=== PATIENT | female | born 1955 | race Caucasian/White ===

== ENCOUNTER 2018-08-10 00:24 | Outpatient (CLI) | payer OTHER, SELFPAY ==
--- NOTE | 2018-08-10 14:45 | DI.RAD_ITS ---
SYMPTOMS/DIAGNOSIS: OSTEOPENIA, M85.80 DEXA SCAN: Routine examination. The lateral spine shows no compression deformities. Evaluation of the left hip shows a total T score of -1.9 and a Z score of -0.7. This is consistent with osteopenia and an increased fracture risk. This compares with a total T score of -1.6 from 2009. Evaluation of the lumbar spine shows a total T score of -0.4 and a Z score of 1.3, which is within normal limits. The total T score is unchanged compared to 2009. There is no evidence of osteoporosis. IMPRESSION: Osteopenia in the left hip. No evidence of osteoporosis.
--- NOTE | 2018-08-10 15:11 | DI.MAMMO_ITS ---
SYMPTOM/DIAGNOSIS: SCREENING, PREVENTATIVE HEALTH CARE MAMMOGRAMS: Mammograms were interpreted according to the usual protocol including computer analysis with CAD system, tomosynthesis and C view imaging. Comparison is with the prior examinations. No suspicious masses or microcalcifications are seen. There is a new well- circumscribed density in the 9 o'clock position of the right breast. Spot compression views and a right breast ultrasound are requested for further evaluation. IMPRESSION: Additional views of the right breast as described above. Category 0, breast density category B. MQSA ASSESSMENT OF FINDINGS: Incomplete: Needs additional imaging evaluation. Category 0. Patient will receive a letter notifying them of these results. BI-RADS category B. There are scattered areas of fibroglandular density.
== END 2018-08-10 00:44 ==
PROVIDERS: PCP Family Medicine; Visit Provider Family Medicine
DX: M85.88 Other specified disorders of bone density and structure, other site (principal); Z00.00 Encounter for general adult medical examination without abnormal findings; Z12.31 Encounter for screening mammogram for malignant neoplasm of breast; R92.8 Other abnormal and inconclusive findings on diagnostic imaging of breast
CPT/HCPCS: 77063; 77067; 77080

== ENCOUNTER 2018-08-13 01:02 | Outpatient (CLI) | payer OTHER, SELFPAY ==
--- NOTE | 2018-08-13 14:18 | DI.COMBO_ITS ---
SYMPTOMS/DIAGNOSIS: F/U ABNORMAL MAMMO, NEW WELL-CIRCUMSCRIBED DENSITY ADDITIONAL VIEWS OF THE RIGHT BREAST AND RIGHT BREAST ULTRASOUND: Additional images are interpreted according to the usual protocol including tomosynthesis and 2D imaging. Spot compression views with tomography of the lateral and inferior right breast were performed. There is a persistent circumscribed nodule, which has the appearance of a lymph node. Breast density B. Right breast ultrasound shows a 5 mm hypoechoic nodule in the lower outer quadrant, consistent with a lymph node. No suspicious masses are seen. IMPRESSION: Category 2, negative mammogram and right breast ultrasound with benign findings of a 5 mm intramammary lymph node. Yearly screening mammography is recommended. MQSA ASSESSMENT OF FINDINGS: Negative with benign findings. Category 2. Patient will receive a letter notifying them of these results. BI-RADS category B. There are scattered areas of fibroglandular density.
== END 2018-08-13 01:22 ==
PROVIDERS: PCP Family Medicine; Visit Provider Family Medicine
DX: Z12.31 Encounter for screening mammogram for malignant neoplasm of breast (principal); R92.8 Other abnormal and inconclusive findings on diagnostic imaging of breast; N60.81 Other benign mammary dysplasias of right breast
CPT/HCPCS: 76642; 77063; 77067

== ENCOUNTER 2019-09-04 02:04 | Outpatient (CLI) | payer OTHER, SELFPAY ==
[2019-09-04 10:03] LABS: HCT 39.8 % (36.0-46.0); HGB 13.8 g/dL (12.0-15.5); Mean Corp. HGB Concentration 34.7 g/dL (32.0-36.0); Mean Corpuscular Hemoglobin 31.7 pg (27.0-33.0); Mean Corpuscular Volume 91.3 fL (80-95); Mean Platelet Volume 10.9 fL (8.0-11.0); Platelet Count 265 x1000/uL (130-400); RBC 4.36 m/cumm (4.00-5.20); RBC Distribution Width 12.8 % (11.7-14.6); White Blood Cell Count 4.94 k/cumm (4.4-10.8)
[2019-09-04 11:48] LABS: ALT 42 U/L (14-59); AST 20 U/L (15-37); Albumin 3.7 g/dL (3.4-5.0); Alkaline Phosphatase 85 U/L (46-116); Anion Gap 9.6 mmol/L (3-11); BUN 18 mg/dL (7-18); Bilirubin, Total 0.4 mg/dL (0.2-1.0); CO2 27.4 mmol/L (21.0-32.0); CREATININE 0.83 mg/dL (0.55-1.02); Calcium 8.9 mg/dL (8.5-10.1); Calculated LDL 127 mg/dL; Chloride 105 mmol/L (98-107); Cholesterol 195 mg/dL (50-200); Glucose 92 mg/dL (70-100); HDL Cholesterol 40 mg/dL (40-60); Potassium 4.6 mmol/L (3.5-5.1); Sodium 142 mmol/L (136-145); Total Protein 6.7 g/dL (6.4-8.2); Triglyceride 144 mg/dL (30-150)
== END 2019-09-04 02:24 ==
PROVIDERS: PCP Student in an Organized Health Care Education/Training Program; Visit Provider Student in an Organized Health Care Education/Training Program
DX: I95.1 Orthostatic hypotension (principal); R00.0 Tachycardia, unspecified; E78.00 Pure hypercholesterolemia, unspecified; M85.80 Other specified disorders of bone density and structure, unspecified site; T50.905A Adverse effect of unspecified drugs, medicaments and biological substances, initial encounter; Z13.220 Encounter for screening for lipoid disorders
CPT/HCPCS: 36415; 80053; 80061; 85027

== ENCOUNTER 2020-08-13 21:29 | Outpatient (REF) | payer OTHER, SELFPAY | END 2020-08-13 21:49 | LOC: LBN 21:29 | PROVIDERS: PCP Student in an Organized Health Care Education/Training Program; Visit Provider Physician Assistant | DX: N39.0 Urinary tract infection, site not specified (principal) | CPT/HCPCS: 87077; 87086; 87186 ==

== ENCOUNTER 2020-08-25 11:20 | Outpatient (REF) | payer OTHER, SELFPAY | END 2020-08-25 11:40 | LOC: LBN 11:20 | PROVIDERS: PCP Student in an Organized Health Care Education/Training Program; Visit Provider Physician Assistant | DX: N39.0 Urinary tract infection, site not specified (principal) | CPT/HCPCS: 87086 ==

== ENCOUNTER 2022-01-18 06:46 | Observation (INO) | payer OTHER, SELFPAY ==
[2022-01-18] VITALS (27 sets, daily range): BP systolic 114–192; BP diastolic 66–92; PULSE 74–107; RESP 8–28; TEMP 36.5–37.3; O2SAT 94–99
--- NOTE | 2022-01-18 06:45 | RT.EKG_ITS ---
APPROVED REPORT Exam: Resting ECG Reason for Exam: chest pain Patient Location: E HR:87 bpm ECG Measurements Heart Rate 87 AXIS FL 150 P 45 QRSd 84 QRS 29 QT 383 T 20 QTc 462 Conclusion Sinus rhythm...normal P axis, V-rate 60- 99 Low voltage, precordial leads...precordial leads <1.0mV Physician: Rate 87, sinus rhythm, minimal less than a millimeter depression in V3, V4. Inverted T wa ve in lead III. No STEMI. Q waves noted in lead III. Prior EKG from 11/03/2017 shows no significant changes.
--- NOTE | 2022-01-18 07:14 | W.ED.GENAD ---
Discharge Plan Disposition Patient Disposition: STILL A PATIENT Condition: Stable Discharge Details Clinical Impression: Chest pain Primary Care Provider: Naty Kim ED Provider: Ajay Nava Home Meds and New Rx's Prescriptions: No Action lisinopril 10 mg tablet 10 mg PO DAILY Qty: 90 3RF amlodipine 2.5 mg tablet 2.5 mg PO DAILY Qty: 90 3RF propranolol 10 mg tablet 10 mg PO TID Qty: 270 3RF hydralazine 10 mg tablet 10 mg PO TID Qty: 270 3RF Rx Instructions: Increase for BP elevations umbrellux PO 0RF ibuprofen 200 mg tablet 200 mg PO QHS PRN0RF diphenhydramine HCl [Benadryl] 25 mg capsule 25 mg PO ONCE PRN0RF Rx Instructions: Benadryl takes BID and then additional prn not to exceed 150mg/24hrs. EO multivitamin [Multi-Day] 1 EACH tablet 1 ea PO DAILY 0RF magnesium oxide 250 mg magnesium tablet 250 mg PO DAILY Qty: 90 0RF atorvastatin [Lipitor] 10 mg tablet 10 mg PO DAILY Qty: 90 3RF omeprazole 20 mg capsule,delayed release(DR/EC) 20 mg PO DAILY Qty: 90 3RF aspirin 81 MG tablet,delayed release (DR/EC) 81 mg PO DAILY 0RF loratadine [Claritin] 10 mg Tablet 10 mg PO DAILY 0RF Medical Decision Making 66-year-old female with a past medical history of mast cell disorder, pots syndrome, hypertension, high cholesterol, family history of cardiac disease, dysautonomia orthostatic hypotension syndrome, presents today for generalized feeling unwell. Patient states that for the last 1 to 2 weeks she has not felt up to her normal. She has had intermittent chills, epigastric discomfort, chest tightness, and burping and reflux-like symptoms that have gone on and off for the last 1 to 2 weeks. She denies any significant aggravating or relieving factors. She denies any focal exertional components. She does have a strong family history of cardiac disease. She does admit to having symptoms like this a few years ago, but it was never worked up at that time. No other complaints at this time. No arm neck or shoulder pain. No tearing or ripping sensation. No pleuritic chest pain. No history of PE, long trips, recent surgeries or procedures. Physical exam demonstrates no calf tenderness, clear lungs, no epigastric pain or tenderness. Differential is broad, her family history and risk factors are certainly concerning for cardiac etiology, PE is also on the differential. Dissection less likely. Limited bedside echo demonstrates evidence of a trace pericardial effusion. No clinical evidence of tamponade. No evidence of significant cardiac failure. She demonstrates good contractility. Will evaluate for these concerning etiologies, monitor closely and reassess. Patient will be signed out to my colleague Dr. Rosina Wasserman for follow-up on labs and imaging. EKG 6:54 Rate 87, sinus rhythm, minimal less than a millimeter depression in V3, V4. Inverted T wave in lead III. No STEMI. Q waves noted in lead III. Prior EKG from 11/03/2017 shows no significant changes. HPI General Date/Time Provider Initiated Documentation: 01/18/22 06:54. HPI Narrative: 66-year-old female with a past medical history of mast cell disorder, pots syndrome, hypertension, high cholesterol, family history of cardiac disease, dysautonomia orthostatic hypotension syndrome, presents today for generalized feeling unwell. Patient states that for the last 1 to 2 weeks she has not felt up to her normal. She has had intermittent chills, epigastric discomfort, chest tightness, and burping and reflux-like symptoms that have gone on and off for the last 1 to 2 weeks. She denies any significant aggravating or relieving factors. She denies any focal exertional components. She does have a strong family history of cardiac disease. She does admit to having symptoms like this a few years ago, but it was never worked up at that time. No other complaints at this time. No arm neck or shoulder pain. No tearing or ripping sensation. No pleuritic chest pain. No history of PE, long trips, recent surgeries or procedures. Related Data Home Medications Medication Instructions Recorded Confirmed multivitamin (Multi-Day) 1 ea PO DAILY 01/23/14 01/18/22 aspirin 81 mg tablet,delayed 81 mg PO DAILY 07/15/17 01/18/22 release ibuprofen 200 mg tablet 200 mg PO QHS PRN tab 11/11/19 01/18/22 umbrellux PO 11/11/19 01/31/21 magnesium oxide 250 mg PO DAILY #90 tab 10/19/20 01/18/22 diphenhydramine HCl 25 mg capsule 25 mg PO ONCE PRN cap 01/31/21 01/18/22 (Benadryl) lisinopril 10 mg tablet 10 mg PO DAILY #90 tab 01/31/21 01/18/22 atorvastatin 10 mg tablet (Lipitor) 10 mg PO DAILY #90 tab-cap 02/05/21 01/18/22 omeprazole 20 mg capsule,delayed 20 mg PO DAILY #90 tab-cap 02/05/21 01/18/22 release amlodipine 2.5 mg tablet 2.5 mg PO DAILY #90 tab 03/08/21 01/18/22 hydralazine 10 mg tablet 10 mg PO TID #270 tab 04/19/21 01/18/22 propranolol 10 mg tablet 10 mg PO TID #270 tab 04/19/21 01/18/22 loratadine 10 mg tablet (Claritin) 10 mg PO DAILY 01/18/22 01/18/22 Previous Rx's Medication Instructions Recorded magnesium oxide 250 mg PO DAILY #90 tab 10/19/20 lisinopril 10 mg tablet 10 mg PO DAILY #90 tab 01/31/21 atorvastatin 10 mg tablet (Lipitor) 10 mg PO DAILY #90 tab-cap 02/05/21 omeprazole 20 mg capsule,delayed 20 mg PO DAILY #90 tab-cap 02/05/21 release amlodipine 2.5 mg tablet 2.5 mg PO DAILY #90 tab 03/08/21 hydralazine 10 mg tablet 10 mg PO TID #270 tab 04/19/21 propranolol 10 mg tablet 10 mg PO TID #270 tab 04/19/21 Allergies Allergy/AdvReac Type Severity Reaction Status Date / Time codeine Allergy Severe headaches Verified 01/18/22 07:03 hydrochlorothiazide Allergy Severe dizzyness Verified 01/18/22 07:03 clindamycin Allergy Intermediate diarrehea Verified 01/18/22 07:03 Penicillins Allergy Mild hives Verified 01/18/22 07:03 azithromycin Allergy Unknown irregular Verified 01/18/22 07:03 heart beat epinephrine HCl AdvReac Severe HYPERSENSIT Verified 01/18/22 07:03 [From Adrenalin] REILLY General Stated Complaint: Chest Pain WILDER: 2 Review of Systems All systems reviewed & are unremarkable except as noted in HPI and below PFSH All Active Problems (Updated 01/18/22 @ 07:30 by Ajay Nava DO) Chest pain (Acute) Acute UTI (Acute) Mast cell disorder (Acute) MCAS (clinical Dx, 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 episodes of hives, fatigue, illness. Good results with low histamine diet. Gastroesophageal reflux disease (Acute 06/08/18) Ocular migraine (Acute 06/08/18) History of weakness of extremity (Chronic) No h/o CVA, no major decline reported .. but baseline evaluation appreciated. Left sided LE weakness noted on exam (UE seem symm). Encounter for screening and preventative care (Acute) Reviewed med problems, meds. Chol screen [ ] , spring 2018. Mammo (-). Cornucopia [ ] (declined 2' POTS & Anesth risks)(FITS?). Dexa done (Osteopenia). Reviewed activity, diet. Couns on hydration, diet examples, prevent care for left sided weakness.. Osteopenia (Acute ~06/26/09) L hip T score -1.6, repeated 08/10/18 Left hip -1.9 POTS (postural orthostatic tachycardia syndrome) (Acute 06/08/18) Pt knows/manages herself well, decreased CCB (LE Edema) and added hydralazine in Jul 2018. Unable to tolerate higher dose ACEi. Hypertension (Acute) Hypercholesterolemia (Acute 06/11/09) 2015 labs show HyperTRIG, with Chol WNL (rubia meds). Low HDL notable. Statin refilled 08/2018, labs ordered for Spring 2018, [ ] Dysautonomia orthostatic hypotension syndrome (Acute 12/17/17) Medical History (Updated 01/18/22 @ 07:30 by Ajay Nava DO) GERD Hyperlipidemia POTS syndrome Surgical History Appendectomy Arthroplasty of knee Ligation of fallopian tube Tonsillectomy and adenoidectomy Family History Other Personal history of malignant neoplasm uncle-colon ca Heart disease Hyperlipidemia Other Personal history of malignant neoplasm aunt -breast ca Heart disease Alcohol use Mother Dementia Hyperlipidemia Heart disease Essential hypertension Father Essential hypertension Stroke Heart disease Social History (Reviewed 01/18/22 @ 07:26 by DORETHA Elizabeth Smoking/Tobacco Use Status: Never Smoking risk assessment performed?: Yes Alcohol Intake: never Substance use type: does not use Adopted: No Caregiver/Support person: No Foster care: No Household members: spouse Housing: house Number of Children: 2 Communication Needs: Corrective Lenses Do you need help understanding health information?: Rarely 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 Pets and animals: Yes Pets and animals: dog(s) Sexually active: No Do you think of yourself as: straight/heterosexual Current gender identity: female What is your relationship status?: How often do you talk on the phone with friends or family?: once per week How often do you get together with friends or relatives?: never How often do you attend moravian or muslim services?: decline to answer Do you belong to any clubs or organized social groups?: no Panel score (0-1 are the most socially isolated patients): 1 What type of physical activity do you participate in: none Duration: 30-45 minutes/day Frequency: 5-6 times per week Bella/Pentecostal: hindu Special bella needs: No Seatbelt use: always Helmet use: Yes Helmet use: never Drive intox or ride w/intox transit mixer driver: No Working smoke detector in home: Yes Fire extinguisher in home: No Carbon monox detector in home: Yes Do you feel safe in your relationship?: Yes Exam Narrative Exam Narrative: 1.Const: Well-nourished, Well-developed, appearing stated age 2.Eyes: PERRL, no conjunctival injection, and symmetrical lids. 3.ENT: Atraumatic external nose and ears. Moist MM. Neck: Symmetric, trachea midline, No thyromegaly. 4.CVS: +S1/S2, No murmurs or gallops. Peripheral pulses 2+ and equal in all extremities. Brisk capillary refill in all extremities. 5.RESP: Unlabored respiratory effort. Clear to auscultation bilaterally. No wheezes rales or rhonchi 6.GI: Soft, Nontender/Nondistended, No hepatosplenomegaly. No guarding or rebound. 7.MSK: Normocephalic/Atraumatic, Extremities w/o deformity or ttp No cyanosis or clubbing, Normal movement of all extremities, no calf tenderness 8.Skin: Warm, Dry. No rashes or lesions. 9.Neuro: agent ticketing gate II-XII grossly intact. Sensation grossly intact, no focal neurologic deficits. 10.Psych: (AAO) x3. Appropriate mood and affect Course Vital Signs Vital signs: Vital Signs Temperature 36.5 C 01/18/22 06:58 Pulse 91 H 01/18/22 06:58 Respiratory Rate 18 01/18/22 06:58 Blood Pressure 178/82 H 01/18/22 06:58 Pulse Oximetry 97 01/18/22 06:58 Temperature 36.5 C 01/18/22 06:58 Temperature Source Skin 01/18/22 06:58 Pulse 91 H 01/18/22 06:58 Respiratory Rate 18 01/18/22 06:58 Respiratory Effort 01/18/22 06:58 Blood Pressure 178/82 H 01/18/22 06:58 Blood Pressure Position Sitting 01/18/22 06:58 Pulse Oximetry 97 01/18/22 06:58 Pain Level 0 01/18/22 06:58 Sign Out Sign Out Data: Sign Out Comment: Chest pain, epigastric discomfort, pending laboratory work-up, imaging decision after D-dimer, and reassessment. Last updated by Ajay Nava DO at 01/18/22 07:32
[2022-01-18 07:17] LABS: Abs Immature Grans 0.02 10^3/uL (0.0-0.06); Absolute Basophil Count 0.02 10^3/uL (0.0-0.2); Absolute Eosinophil Count 0.04 10^3/uL (0.0-0.7); Absolute Lymphocyte Count 1.47 10^3/uL (1.2-3.4); Absolute Monocyte Count 0.47 10^3/uL (0.1-0.8); Absolute Neutrophil Count 6.68 10^3/uL (1.2-6.7); Basophils % 0.2; Eosinophils % 0.5; HCT 44.1 % (36.0-46.0); HGB 14.7 g/dL (11.2-15.7); Immature Grans % 0.2; Lymphocytes % 16.9; MCH 30.6 pg (27.0-33.0); MCHC 33.3 % (32.0-36.0); MCV 91.9 fL (80-95); MPV 11.1 fL (8.0-11.0); Monocytes % 5.4; Neutrophils % 76.8; Nucleated RBC 0 %; Platelet Count 285 10^3/uL (130-400); RDW 12.1 % (11.7-14.6); RDW-SD 41.2 fL
[2022-01-18 07:31] LABS: Source Nasal/Nares
[2022-01-18] MEDS: Normal Saline 500 ML IV (07:40)
[2022-01-18] MEDS: Aspirin 81 MG CHEW 324 MG CH (07:45)
[2022-01-18 07:51] LABS: PTT Activated 26.1 sec (21.0-27.5); Prothrombin Time 9.7 sec (9.3-11.0)
[2022-01-18 08:00] LABS: ALT 33 U/L (14-59); AST 26 U/L (15-37); Albumin 3.9 g/dL (3.4-5.0); Alkaline Phosphatase 93 U/L (46-116); Anion Gap 10.7 mmol/L (3-11); BUN 13 mg/dL (7-18); Bilirubin, Total 0.4 mg/dL (0.2-1.0); CO2 24.3 mmol/L (21.0-32.0); CREATININE 0.9 mg/dL (0.55-1.02); Calcium 9.1 mg/dL (8.5-10.1); Chloride 107 mmol/L (98-107); Glucose 119 mg/dL (74-106); Lipase 105 U/L (73-393); NT-proBNP 135 pg/mL (<300); Sodium 142 mmol/L (136-145); TSH (W/Ref FT4) 1.19 uIU/mL (0.36-3.74); Total Protein 7.6 g/dL (6.4-8.2); Troponin I < 50 ng/L (<or=60)
[2022-01-18 08:13] LABS: COVID-19 PCR Negative (Negative)
[2022-01-18 08:17] LABS: D-Dimer 561 ng/mlFEU (<500)
[2022-01-18 08:26] LABS: Bilirubin Negative (Negative); Blood Negative (Negative); Clarity Clear (Clear); Glucose Negative (Negative); Ketones Negative (Negative); Leukocyte Esterase Negative (Negative); Nitrite Negative (Negative); Urobilinogen 0.2 EU/dL (Up TO 0.2)
[2022-01-18 10:39] LABS: Troponin I < 50 ng/L (<or=60)
[2022-01-18] MEDS: Famotidine 20 MG/2 ML VIAL IVP (11:25)
--- NOTE | 2022-01-18 16:11 | HPE_ITS ---
Date of service: 01/18/22 Time of Service: 16:11 Assessment and Plan Assessment and plan (1) Chest pain: Status: Acute Assessment and plan: atypical CP/epigastric pain w/ abdominal bloating and pressure radiating from epigastrium into chest and her back w/ relief after belching and antacids. This is clearly GI in origin. Nevertheless, her family hx of CAD and her own HLD and HTN and her age increase her risk for occult CAD. She ought to have outpatient stress MPI. She also should have formal EGD and or esophageal manometry to assess her GERD. She will be monitored on telemetry. Her troponin levels will be completed and she will be started on pepcid, simethicone, her prilosec will be increased and we will arrange outpatient follow up w/ surgery for EGD and outpatient Lexiscan MPI study. There is no need for V/Q or CT scan. I think that her mast cell degranulation disorder should have a formal evaluation by an single stroke preformer. (2) Gastroesophageal reflux disease: Status: Acute Assessment and plan: as above (3) POTS (postural orthostatic tachycardia syndrome): Status: Acute Assessment and plan: cont. home meds (4) Hyperlipidemia: Assessment and plan: cont .home meds (5) Hypertension: Status: Acute Assessment and plan: will continue her home meds for now but her BP could be under better control however she seems somewhat stressed out therefore I am not going to acutely change her BP meds unless it becomes dangerously high, i.e. 200/105 or higher History of Present Illness History of Present Illness Chief Complaint: Belching, epigastric abdominal pain, chest pressure Narrative: 66-year-old female non-smoker with a history of pots syndrome, hyperlipidemia, essential hypertension, mast cell degranulation disorder (self diagnosed) who for the past 2 weeks has had intermittent episodes of epigastric discomfort with abdominal bloating with chest pressure with radiation into her back that will last for up to half hour at a time not exertionally related and not associate with any dyspnea, cough, fever, chills. she will get intermittent relief after belching. No associated melena or hematochezia. Patient states she had similar episodes couple years ago that subsided on their own and she never pursued a work-up. She has never had an EGD nor has she ever had a stress test. She regularly takes omeprazole 20 mg daily. Today she presented to the emergency department this morning because her symptoms started during the night and con tinued all night long began around 2 AM. She had a work-up in the emergency department included an EKG and serial troponin levels as well as routine labs including CBC and CMP and a D-dimer. CTA of the chest was going to be performed but because of her history of iodine allergy which she relates to her mast cell degranulation syndrome radiology would not perform a CTA of her chest. EKG demonstrated normal sinus rhythm with nonspecific ST depression in V3 through V5. Troponin I levels were less than 50x2 sets. D-dimer was minimally elevated at 561 ng/mL which was within the patient's age adjusted limit of 670. CBC was unremarkable. CMP was unremarkable. Nasal swab for SARS-CoV-2 was negative. No chest x-ray was performed. Unfortunately the expectation was given to the patient that she should have a VQ scan to rule out a PE even though the patient's Wells score was 0 giving her a pretest probability of being low or 4%. Furthermore the ED provider performed a venous compression study of her legs which did not show DVT. Patient was treated in the emergency department with a GI cocktail and IV Pepcid which did improve her discomfort and her belching. Patient is admitted on observation status for overnight monitoring and initiation of H2 blockers and simethicone. Review of Systems Constitutional Constitutional: Reports as per HPI ENT Ears, Nose, Mouth, and Throat: Denies dysphagia Cardiovascular Cardiovascular: Reports chest pain, Denies chest pain with activity, Reports syncope (no acute fainting w/ current sx but prior fainting w/ her POTS), Reports rapid heart rate, Denies radiating jaw, neck or arm pain, Denies palpitations, Denies dyspnea, Denies dyspnea on exertion and Denies paroxysmal nocturnal dyspnea Respiratory Respiratory: Reports system reviewed and no additional complaints, except as documented, Denies dyspnea and Denies dyspnea on exertion Gastrointestinal Gastrointestinal: Reports belching, Denies melena, Reports bloating, Denies dysphagia, Reports dyspepsia, Denies nausea and Denies vomiting Genitourinary Genitourinary: Reports system reviewed and no additional complaints, except as documented Musculoskeletal Musculoskeletal: Reports system reviewed and no additional complaints, except as documented Integumentary/Breasts Skin/Breast: Reports system reviewed and no additional complaints, except as documented Neurologic Neurologic: Reports system reviewed and no additional complaints, except as documented and Reports syncope (no acute fainting w/ current sx but prior fainting w/ her POTS) Endocrine Endocrine: Denies palpitations Hematologic/Lymphatic Hematologic/Lymphatic: Reports system reviewed and no additional complaints, except as documented Allergic/Immunologic Allergic/Immunologic: Reports GI upset with certain foods PFSH All Active Problems Chest pain (Acute) Elevated d-dimer (Acute) Acute UTI (Acute) Mast cell disorder (Acute) MCAS (clinical Dx, 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 episodes of hives, fatigue, illness. Good results with low hi stamine diet. Gastroesophageal reflux disease (Acute 06/08/18) Ocular migraine (Acute 06/08/18) History of weakness of extremity (Chronic) No h/o CVA, no major decline reported .. but baseline evaluation appreciated. Left sided LE weakness noted on exam (UE seem symm). Encounter for screening and preventative care (Acute) Reviewed med problems, meds. Chol screen [ ] , spring 2018. Mammo (-). [place] [ ] (declined 2' POTS & Anesth risks)(FITS?). Dexa done (Osteopenia). Reviewed activity, diet. Couns on hydration, diet examples, prevent care for left sided weakness.. Osteopenia (Acute ~06/26/09) L hip T score -1.6, repeated 08/10/18 Left hip -1.9 POTS (postural orthostatic tachycardia syndrome) (Acute 06/08/18) Pt knows/manages herself well, decreased CCB (LE Edema) and added hydralazine in Jul 2018. Unable to tolerate higher dose ACEi. Hypertension (Acute) Hypercholesterolemia (Acute 06/11/09) 2016 labs show HyperTRIG, with Chol WNL (rubia meds). Low HDL notable. Statin refilled 08/2018, labs ordered for Spring 2018, [ ] Dysautonomia orthostatic hypotension syndrome (Acute 12/17/17) Medical History GERD Hyperlipidemia POTS syndrome Surgical History Appendectomy Arthroplasty of knee Ligation of fallopian tube Tonsillectomy and adenoidectomy Family History Other Personal history of malignant neoplasm uncle-colon ca Heart disease Hyperlipidemia Other Personal history of malignant neoplasm aunt -breast ca Heart disease Alcohol use Mother Dementia Hyperlipidemia Heart disease Essential hypertension Father Essential hypertension Stroke Heart disease Social History (Updated 01/18/22 @ 19:47 by Yung Abel) Smoking/Tobacco Use Status: Never Smoking risk assessment performed?: Yes Alcohol Intake: never Substance use type: does not use Adopted: No Caregiver/Support person: No Foster care: No Household members: spouse Housing: house Number of Children: 2 Communication Needs: Corrective Lenses Do you need help understanding health information?: Rarely 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 Pets and animals: No (formerly had a dog who last year 2020) Sexually active: No Do you think of yourself as: straight/heterosexual Current gender identity: female What is your relationship status?: How often do you talk on the phone with friends or family?: once per week How often do you get together with friends or relatives?: never How often do you attend buddhism or denominational services?: decline to answer Do you belong to any clubs or organized social groups?: no Panel score (0-1 are the most socially isolated patients): 1 What type of physical activity do you participate in: none Duration: 30-45 minutes/day Frequency: 5-6 times per week Bella/Uatsdin: religious Special bella needs: No Seatbelt use: always Helmet use: Yes Helmet use: never Drive intox or ride w/intox bulk delivery driver: No Working smoke detector in home: Yes Fire extinguisher in home: No Carbon monox detector in home: Yes Do you feel safe in your relationship?: Yes Meds Allergies and Home Medications Allergies Allergy/AdvReac Type Severity Reaction Status Date / Time codeine Allergy Severe headaches Verified 01/18/22 07:03 hydrochlorothiazide Allergy Severe dizzyness Verified 01/18/22 07:03 clindamycin Allergy Intermediate diarrehea Verified 01/18/22 07:03 Penicillins Allergy Mild hives Verified 01/18/22 07:03 azithromycin Allergy Unknown irregular Verified 01/18/22 07:03 heart beat epinephrine HCl AdvReac Severe HYPERSENSIT Verified 01/18/22 07:03 [From Adrenalin] REILLY Home Medications Medication Instructions Recorded Confirmed Type multivitamin (Multi-Day) 1 ea PO DAILY 01/23/14 01/18/22 History aspirin 81 mg tablet,delayed 81 mg PO DAILY 07/15/17 01/18/22 History release ibuprofen 200 mg tablet 200 mg PO QHS PRN tab 11/11/19 01/18/22 History umbrellux PO 11/11/19 01/31/21 History magnesium oxide 250 mg PO DAILY #90 tab 10/19/20 01/18/22 Rx diphenhydramine HCl 25 mg capsule 25 mg PO ONCE PRN cap 01/31/21 01/18/22 History (Benadryl) lisinopril 10 mg tablet 10 mg PO DAILY #90 tab 01/31/21 01/18/22 Rx atorvastatin 10 mg tablet (Lipitor) 10 mg PO DAILY #90 tab-cap 02/05/21 01/18/22 Rx omeprazole 20 mg capsule,delayed 20 mg PO DAILY #90 tab-cap 02/05/21 01/18/22 Rx release amlodipine 2.5 mg tablet 2.5 mg PO DAILY #90 tab 03/08/21 01/18/22 Rx hydralazine 10 mg tablet 10 mg PO TID #270 tab 04/19/21 01/18/22 Rx propranolol 10 mg tablet 10 mg PO TID #270 tab 04/19/21 01/18/22 Rx loratadine 10 mg tablet (Claritin) 10 mg PO DAILY 01/18/22 01/18/22 History Exam Const General: cooperative, healthy appearing, comfortable, no acute distress, well developed and well groomed Nutritional Appearance: overweight Orientation: alert, awake and oriented x3 HENMT Head: normal to inspection Face and sinus: normal facial exam Eyes General: appearance normal, both eyes and all related structures Alignment and Position: alignment normal Periorbital: periorbital findings normal Eyelids: eyelids normal Conjunctivae: conjunctivae normal Sclera: sclerae normal EOM: EOM intact bilaterally Neck Neck: normal visual inspection, full ROM, no lymphadenopathy, trachea midline, supple and no JVD Carotids: normal carotid upstroke Lymphatic: no lymphadenopathy noted Chest Chest: normal inspection of the chest and normal palpation of entire chest wall Resp Effort & Inspection: normal respiratory effort and able to speak in complete sentences Auscultation: clear to auscultation bilaterally Cardio Jugular venous pressure: no JVD Palpation: normal PMI Rate: regular rate Rhythm: regular rhythm Heart Sounds: S1 normal, S2 normal and normal, physiologic split S2 Bruits: no abdominal aortic bruits Pulses: brachial pulses present, radial pulses present, popliteal pulses present, posterior tibial pulses present and dorsalis pedis present GI Inspection: normal to inspection Palpation: soft, no hepatosplenomegaly and no aortic enlargement Percussion: normal to percussion Auscultation: normal bowel sounds Back/Spine/Pelvis Back: no CVA tenderness Cervical Spine: normal cervical lordosis Thoracic/Lumbar Spine: thoracic and lumbar spine normal to inspection Skin General skin exam: no rashes or lesions noted, elasticity normal and turgor normal Neuro General: patient alert, patient awake, patient oriented x3, gait normal, tone normal, moves all extremities, normal light touch, pain and propioception and no focal motor deficits Extrem General: normal to inspection, full ROM, capillary refill normal, no joint enlargement, no clubbing, cyanosis or edema, no pedal edema and no calf tenderness Psych Appearance: grossly normal Mental Status: mental status grossly normal Speech and Movement: speech and movement normal Mood: anxious mood Affect: normal affect Attitude: cooperative Thought Process: normal Thought Content: normal Insight: insight good Judgment: judgment good Results Labs Result diagrams: 01/18/22 07:00 01/18/22 07:00 Labs: Laboratory Results - last 24 hr 01/18/22 01/18/22 01/18/22 07:00 07:00 07:00 WBC 8.70 RBC 4.80 Hgb 14.7 Hct 44.1 MCV 91.9 MCH 30.6 MCHC 33.3 RDW 12.1 Plt Count 285 MPV 11.1 H Immature Gran % 0.2 Neutrophils % 76.8 Lymphocytes % 16.9 Monocytes % 5.4 Eosinophils % 0.5 Basophils % 0.2 Nucleated RBC % 0 Absolute Neutrophils 6.68 Absolute Lymphocytes 1.47 Absolute Monocytes 0.47 Absolute Eosinophils 0.04 Absolute Basophils 0.02 PT 9.7 INR 1.0 APTT 26.1 D-Dimer 561 H Sodium 142 Potassium 4.0 Chloride 107 Carbon Dioxide 24.3 Anion Gap 10.7 BUN 13 Creatinine 0.9 Estimated GFR/1.73 m2 >= 60.00 Glucose 119 H Calcium 9.1 Total Bilirubin 0.4 AST 26 ALT 33 Alkaline Phosphatase 93 Troponin I < 50 NT-Pro-B Natriuret Pep 135 Total Protein 7.6 Albumin 3.9 Lipase 105 TSH 1.19 Urine Color Urine Clarity Urine pH Ur Specific [place] Urine Protein Urine Ketones Urine Blood Urine Nitrite Urine Bilirubin Urine Urobilinogen Ur Leukocyte Esterase Urine Glucose COVID-19 Source SARS-CoV-2 (PCR) 01/18/22 01/18/22 01/18/22 07:25 08:10 10:04 WBC RBC Hgb Hct MCV MCH MCHC RDW Plt Count MPV Immature Gran % Neutrophils % Lymphocytes % Monocytes % Eosinophils % Basophils % Nucleated RBC % Absolute Neutrophils Absolute Lymphocytes Absolute Monocytes Absolute Eosinophils Absolute Basophils PT INR APTT D-Dimer Sodium Potassium Chloride Carbon Dioxide Anion Gap BUN Creatinine Estimated GFR/1.73 m2 Glucose Calcium Total Bilirubin AST ALT Alkaline Phosphatase Troponin I < 50 NT-Pro-B Natriuret Pep Total Protein Albumin Lipase TSH Urine Color Yellow Urine Clarity Clear Urine pH 6.0 Ur Specific [place] 1.010 Urine Protein Negative Urine Ketones Negative Urine Blood Negative Urine Nitrite Negative Urine Bilirubin Negative Urine Urobilinogen 0.2 Ur Leukocyte Esterase Negative Urine Glucose Negative COVID-19 Source Nasal/Nares SARS-CoV-2 (PCR) Negative Last Vital Signs Temp 37.1 C 01/18/22 15:41 Pulse 87 01/18/22 15:41 Resp 18 01/18/22 15:41 BP 171/89 H 01/18/22 15:41 Pulse Ox 97 01/18/22 15:41 Point of Care Ultrasound Note: POCUS of her abdominal aorta demonstrated normal caliber of 1.3 to 1.6 cm with no aneurysm and no dissection.
[2022-01-18] MEDS: Enoxaparin 40 MG/0.4 ML SYR SC (17:45)
--- NOTE | 2022-01-18 18:15 | DI.RAD_ITS ---
Exam(s) XR CHEST 2V PA LATERAL EXAM: XR CHEST 2V PA LATERAL CLINICAL HISTORY: chest pain. TECHNIQUE: 2D digital imaging was performed. COMPARISON: CR CHEST 2 VIEWS PA,LAT from 05/18/2012 FINDINGS: 2 views: Heart size is normal. The mediastinum is not widened. Lungs are clear. No infiltrates nor pleural effusions. IMPRESSION: No acute pulmonary findings. DATA REPOSITORY: RADIATION DOSE DELIVERED:
[2022-01-18 18:39] LABS: Troponin I < 50 ng/L (<or=60)
[2022-01-18] MEDS: Famotidine 20 MG TAB PO (20:15)
[2022-01-18] MEDS: Propranolol 10 MG TAB PO (20:16)
[2022-01-18] MEDS: Simethicone 80 MG CHEW 160 MG PO (20:16)
[2022-01-18] MEDS: hydrALAZINE 10 MG TAB PO (20:16)
[2022-01-18] MEDS: diphenhydrAMINE 25 MG CAP PO (20:16)
[2022-01-18] MEDS: Lisinopril 10 MG TAB PO (20:16)
--- NOTE | 2022-01-18 20:57 | DI.VRAD_ITS ---
PROCEDURE INFORMATION: Exam: XR Chest Exam date and time: 01/18/2022 8:03 PM Age: 66 years old Clinical indication: Other: Unspecified; Patient HX: Chest pain TECHNIQUE: Imaging protocol: XR of the chest. Views: 2 views. COMPARISON: No relevant prior studies available. FINDINGS: Lungs: Unremarkable. No consolidation. Pleural spaces: Unremarkable. No pleural effusion. No pneumothorax. Heart/Mediastinum: Unremarkable. No cardiomegaly. Bones/joints: Unremarkable. IMPRESSION: No evidence for acute abnormality in the chest. Dictated and Authenticated by: Emma Hernandez MD. Ordering:[facility] Colten Barragan MD
[2022-01-19 00:28] VITALS: BP 97/52; PULSE 72; RESP 18; TEMP 36.7; O2SAT 93
[2022-01-19 03:00] VITALS: PULSE 58
[2022-01-19 04:13] VITALS: BP 114/73; PULSE 63; RESP 18; TEMP 37.2; O2SAT 94
[2022-01-19 07:53] VITALS: PULSE 56
[2022-01-19] MEDS: Propranolol 10 MG TAB PO (08:08)
[2022-01-19] MEDS: Simethicone 80 MG CHEW 160 MG PO ×2 (08:09→12:45)
[2022-01-19] MEDS: Multivitamin TAB 1 TAB PO (08:09)
[2022-01-19] MEDS: hydrALAZINE 10 MG TAB PO (08:10)
[2022-01-19] MEDS: Omeprazole 20 MG CAPCR 40 MG PO (08:10)
[2022-01-19] MEDS: Aspirin E.C. 81 MG TABEC PO (08:10)
[2022-01-19] MEDS: Famotidine 20 MG TAB PO (08:10)
[2022-01-19] MEDS: amLODIPine 2.5 MG TAB PO (08:10)
[2022-01-19 08:27] VITALS: BP 164/96; PULSE 77; RESP 24; TEMP 37; O2SAT 95
--- NOTE | 2022-01-19 08:45 | INITIAL_ITS ---
- If Service Date Differs Date of service: 01/19/22 Time of Service: 08:45 Care Management Initial Assess REASON FOR HOSPITALIZATION:: Atypical Chest Pain PAST MEDICAL HISTORY/PAST SURGICAL HISTORY:: All Active Problems . Chest pain (Acute). Elevated d-dimer (Acute). Acute UTI (Acute). Mast cell disorder (Acute). MCAS (clinical Dx, 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 episodes of hives, fatigue, illness. Good results with low histamine diet. Gastroesophageal reflux disease (Acute 06/08/18). Ocular migraine (Acute 06/08/18). History of weakness of extremity (Chronic). No h/o CVA, no major decline reported .. but baseline evaluation appreciated. Left sided LE weakness noted on exam (UE seem symm). Encounter for screening and preventative care (Acute). Reviewed med problems, meds. Chol screen [ ] , spring 2018. Mammo (-). [place] [ ] (declined 2' POTS & Anesth risks)(FITS?). Dexa done (Osteopenia). Reviewed activity, diet. Couns on hydration, diet examples, prevent care for left sided weakness.. Osteopenia (Acute ~06/26/09). L hip T score -1.6, repeated 08/10/18 Left hip - 1.9. POTS (postural orthostatic tachycardia syndrome) (Acute 06/08/18). Pt knows/manages herself well, decreased CCB (LE Edema) and added hydralazine in Jul 2018. Unable to tolerate higher dose ACEi. Hypertension (Acute). Hypercholesterolemia (Acute 06/11/09). 2016 labs show HyperTRIG, with Chol WNL (rubia meds). Low HDL notable. Statin refilled 08/2018, labs ordered for Spring 2018, [ ]. Dysautonomia orthostatic hypotension syndrome (Acute 12/17/17). Medical History . GERD. Hyperlipidemia. POTS syndrome. Surgical History . Appendectomy. Arthroplasty of knee. Ligation of fallopian tube. Tonsillectomy and adenoidectomy PREVIOUS FUNCTIONAL STATUS/SOCIAL/FAMILY SUPPORTS:: Marilou lives in [place] with her Kt. She is independent at baseline. CURRENT FUNCTIONAL STATUS:: Marilou was sitting in her chair eating lunch when CM met with her. She was alert, pleasant and easy to engage in conversation. She is hoping to be discharge soon. ADVANCE DIRECTIVES:: None, CM provided pt with forms. Has patient been provided with info about the portal/API?: Yes Did the patient sign up for the portal?: No CODE STATUS:: Full Code INSURANCE COVERAGE / FINANCIAL ISSUES:: [facility] CBA. Health Plans ([facility] Only) CURRENT HOME/COMMUNITY SERVICES/EQUIPMENT:: None PRIMARY CARE PHYSICIAN:: Naty Kim PATIENT/FAMILY EDUCATION NEEDS:: Review discharge instructions, medications, limitations and plan to follow up with community providers. Ask me three. TRANSPORTATION:: Via private vehicle with family. PLAN:: Marilou was admitted to [facility] observation status for monitoring and medication management. Anticipate, Marilou will discharge home via private vehicle with family when she is medically cleared by M.D. She will follow up with her community providers and discharge plan of care as prescribed. CM will continue to support discharge planning needs.
[2022-01-19] MEDS: Loratidine 10 MG TAB PO (11:19)
--- NOTE | 2022-01-19 12:16 | DSE_ITS ---
Date of service: 01/19/22 Time of Service: 12:16 DS: Diagnosis Discharge Diagnosis (1) Chest pain: Status: Resolved Asessment and Plan: Patient presented with a 2-week history of intermittent epigastric and substernal chest pressure with radiation to her back along with bloating and belching. Symptoms were intermittently alleviated by belching but not by antacids. She was evaluated emergency department with serial troponin I levels as well as an EKG which showed no acute ischemia and her troponin I levels were normal. Patient had a CBC that was within normal limits and a CMP that was normal limits and a lipase and TSH that were within normal limits. D-dimer test was minimally elevated at 561 ng/mL with a normal being less than 500. However her value was within her age-adjusted value of 670. 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 Her calculated Wells score is 0 and therefore an evaluation for pulmonary embolism was not clinically indicated. While in the emergency department she did undergo bedside venous duplex scanning of her legs which showed no DVT. She did receive significant relief of her symptoms with a GI cocktail of antacids and lidocaine as well as IV Pepcid. She was admitted overnight for observation status and monitored on telemetry and had no cardiac arrhythmias. She did have a couple more episodes of significant belching and bloating. One episode occurred couple hours after she was admitted to the medical/surgical floor and another 1 happened on the morning of her discharge. At the time of discharge her symptoms were relieved. She was started on simethicone to help with the belching and kept on oral Pepcid along with her omeprazole. Patient will be discharged to home with new prescriptions for an increased dose of omeprazole 40 mg daily along with Pepcid 20 mg twice daily and simethicone to be taken with each meal at bedtime. Referral will be made to Dr. Mechelle Patterson for further GI evaluation and the patient will be scheduled for an outpatient gallbladder ultrasound as well as an outpatient stress MPI. Patient has multiple risk factors for occult coronary artery disease including multiple family members with premature coronary artery disease as well as her own personal history of hypertension and hyperlipidemia. Chest x-ray which had not been performed during her ER evaluation was obtained later in the evening of her admission and showed normal-sized heart with no mediastinal widening and clear lung tavera. A bedside [id number] ultrasound was performed after abdomen and showed normal caliber to her abdominal aorta. (2) Gastroesophageal reflux disease: Status: Acute Asessment and Plan: New prescription for omeprazole 40 mg daily and Prevacid 20 mg p.o. twice daily. Patient was also prescribed simethicone 160 mg p.o. 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 (4) Hyperlipidemia: Asessment and Plan: Patient will continue her home medications (5) Hypertension: Status: Acute (6) Epigastric abdominal pain: Status: Acute Asessment and Plan: Further evaluation will be obtained as an outpatient including an abdominal ultrasound and a referral to surgery for an EGD. If her abdominal ultrasound shows gallbladder abnormalities then that can also be further investigated by surgical services Discharge Plan Disposition Patient Disposition: HOME Condition: Improving Discharge Details Reason For Visit: Atypical Chest Pain Admit Date/Time: 01/18/22 13:18 Admit Provider: Yung Abel Attending Provider: Yung Abel Primary Care Provider: Naty Kim Home Meds and New Rx's Prescriptions: New famotidine 20 mg Tablet 20 mg PO BID Qty: 60 1RF simethicone 80 mg Tablet,Chewable 160 mg PO PC & HS Qty: 120 1RF omeprazole 40 mg capsule,delayed release(DR/EC) 40 mg PO DAILY Qty: 30 1RF Continued lisinopril 10 mg tablet 10 mg PO DAILY Qty: 90 3RF amlodipine 2.5 mg tablet 2.5 mg PO DAILY Qty: 90 3RF propranolol 10 mg tablet 10 mg PO TID Qty: 270 3RF hydralazine 10 mg tablet 10 mg PO TID Qty: 270 3RF Rx Instructions: Increase for BP elevations umbrellux PO 0RF ibuprofen 200 mg tablet 200 mg PO QHS PRN0RF diphenhydramine HCl [Benadryl] 25 mg capsule 25 mg PO ONCE PRN0RF Rx Instructions: Benadryl takes BID and then additional prn not to exceed 150mg/24hrs. EO multivitamin [Multi-Day] 1 EACH tablet 1 ea PO DAILY 0RF magnesium oxide 250 mg magnesium tablet 250 mg PO DAILY Qty: 90 0RF atorvastatin [Lipitor] 10 mg tablet 10 mg PO DAILY Qty: 90 3RF aspirin 81 MG tablet,delayed release (DR/EC) 81 mg PO DAILY 0RF loratadine [Claritin] 10 mg Tablet 10 mg PO DAILY 0RF Discontinued omeprazole 20 mg capsule,delayed release(DR/EC) 20 mg PO DAILY Qty: 90 3RF Discharge Instructions Instructions: Chest Pain (DC), Noncardiac Chest Pain (DC) Stand Alone Forms: Nursing Discharge Form Referrals: [facility] Stress Lab [Other] (Office should call you to set up appointment. ) [facility] Lab [Other] (Please call Thursday to make an appointment. ) Mechelle Patterson MD [ [facility] STAFF PHYSICIAN] - (the office should call you tomorrow. If you do not hear from them by the afternoon then call the office to set up a new patient appointment for evaluation of your abdominal pain/belching) Naty Kim DO [Primary Care Provider] - (call the office for follow up in the next week) Activity:: Activity as Tolerated Equipment/Supplies:: No Equipment Needed Diet:: As Tolerated Discharge Orders Discharge Orders: Discharge Order (Routine); Ordered 01/19/22 Ordered By: Yung Wise Ambulatory Orders: US abdomen (Routine) Timeframe: 1 Day Facility: [facility] - Location: DIAGNOSTIC IMAGING Ordered By: Yung SNELL MPI rest & stress day 2 (Routine) Timeframe: 2 Days Location: None Selected Ordered By: Yung Abel Discharge Data Discharge Date/Time-TO BE ENTERED AT DEPARTURE: 01/19/22 13:13 DS: Summary Time Spent with Patient providing and/or coordinating discharge services: Less than 30 minutes Status at Discharge Functional status at discharge: independent ambulation Overall status at discharge: patient is back to baseline Mental Status: mental status grossly normal Speech and Movement: speech and movement normal Mood: congruent mood Affect: normal affect Exam Narrative Exam Narrative: Mrs. Payne is sitting up in her chair eating breakfast. She is alert and oriented person place time circumstance Lungs are clear to auscultation Heart regular rate and rhythm Abdomen soft nondistended nontender normal bowel sounds without bruits or masses. Lower extremities without edema Psych Mental Status: mental status grossly normal Speech and Movement: speech and movement normal Mood: congruent mood Affect: normal affect DS: Data Vitals/I&O Vitals and I&O: Vital Signs Temperature 37 C 01/19/22 08:27 Temperature Source Tympanic 01/19/22 08:27 Pulse 77 01/19/22 08:27 Pulse Rhythm Regular 01/19/22 11:44 Pulse 85 01/18/22 13:30 Respiratory Rate 24 01/19/22 08:27 Respiratory Effort Non-Labored 01/19/22 11:44 Respiratory Depth Normal 01/19/22 11:44 Respiratory Pattern Normal 01/19/22 11:44 Blood Pressure 164/96 H 01/19/22 08:27 Blood Pressure Mean 94 01/18/22 13:30 Blood Pressure Position Sitting 01/18/22 06:58 Pulse Oximetry 95 01/19/22 08:27 Oxygen Delivery Method Room Air 01/19/22 08:27 Oxygen Flow Rate 0 01/19/22 08:27 Pain Level 0 01/19/22 08:27 Comment 01/18/22 21:32 Intake & Output 01/18/22 01/19/22 01/19/22 23:59 11:59 23:59 Output Total 550 / 550 700 / 700 Balance -550 / -50 -700 / -700 Weight 73.6 kg 73.1 kg Output: Urine 550 / 550 700 / 700 Other: Urine Color Yellow Yellow Urine Appearance Clear Clear Urine Odor Normal Comment Patient voided in the toilet independently. 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 episodes of hives, fatigue, illness. Good results with low histamine diet. Gastroesophageal reflux disease (Acute 06/08/18) Ocular migraine (Acute 06/08/18) History of weakness of extremity (Chronic) No h/o CVA, no major decline reported .. but baseline evaluation appreciated. Left sided LE weakness noted on exam (UE seem symm). Encounter for screening and preventative care (Acute) Reviewed med problems, meds. Chol screen [ ] , spring 2018. Mammo (-). [place] [ ] (declined 2' POTS & Anesth risks)(FITS?). Dexa done (Osteopenia). Reviewed activity, diet. Couns on hydration, diet examples, prevent care for left sided weakness.. Osteopenia (Acute ~06/26/09) L hip T score -1.6, repeated 08/10/18 Left hip -1.9 POTS (postural orthostatic tachycardia syndrome) (Acute 06/08/18) Pt knows/manages herself well, decreased CCB (LE Edema) and added hydralazine in Jul 2018. Unable to tolerate higher dose ACEi. Hypertension (Acute) Hypercholesterolemia (Acute 06/11/09) 2015 labs show HyperTRIG, with Chol WNL (rubia meds). Low HDL notable. Statin refilled 08/2018, labs ordered for Spring 2018, [ ] Dysautonomia orthostatic hypotension syndrome (Acute 12/17/17) Medical History (Updated 01/19/22 @ 16:37 by Yung Abel) GERD Hyperlipidemia POTS syndrome Surgical History Appendectomy Arthroplasty of knee Ligation of fallopian tube Tonsillectomy and adenoidectomy Family History Other Personal history of malignant neoplasm uncle-colon ca Heart disease Hyperlipidemia Other Personal history of malignant neoplasm aunt -breast ca Heart disease Alcohol use Mother Dementia Hyperlipidemia Heart disease Essential hypertension Father Essential hypertension Stroke Heart disease Social History (Updated 01/18/22 @ 19:47 by Yung Abel) Smoking/Tobacco Use Status: Never Smoking risk assessment performed?: Yes Alcohol Intake: never Substance use type: does not use Adopted: No Caregiver/Support person: No Foster care: No Household members: spouse Housing: house Number of Children: 2 Communication Needs: Corrective Lenses Do you need help understanding health information?: Rarely 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 Pets and animals: No (formerly had a dog who last year 2020) Sexually active: No Do you think of yourself as: straight/heterosexual Current gender identity: female What is your relationship status?: How often do you talk on the phone with friends or family?: once per week How often do you get together with friends or relatives?: never How often do you attend cheondoism or shinto services?: decline to answer Do you belong to any clubs or organized social groups?: no Panel score (0-1 are the most socially isolated patients): 1 What type of physical activity do you participate in: none Duration: 30-45 minutes/day Frequency: 5-6 times per week Bella/Adventist: gnosticism Special bella needs: No Seatbelt use: always Helmet use: Yes Helmet use: never 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
--- NOTE | 2022-01-19 14:00 | CMDISCH_ITS ---
- If Service Date Differs Date of service: 01/19/22 Time of Service: 14:00 LACE Index Scoring Tool - Questions: Length of Stay (in days): 1 Acuity (Admit via E.D.?): Yes E.D. Visits: 1 - Answers: Total Score: 5 Risk of Readmission: Low Risk Care Management Discharge Reason for Hospitalization: Atypical Chest Pain Discharge Plan: Discharge home via private vehicle with family. Take medications as prescribed. Dr. Patterson's office will contact Marilou to schedule a follow up appointment. Marilou will call her PCP and [facility] lab Thursday morning to make appointments. Patient/Family Education Needs: Review discharge intructions, medications, limitations and plan to follow up with community providers. ask me three.
== END 2022-01-19 13:13 | disposition home or self-care (01) ==
LOC: ER 13:33 → MS 14:09
PROVIDERS: Student in an Organized Health Care Education/Training Program; Admitting Provider Internal Medicine; Emergency Provider Emergency Medicine; PCP Student in an Organized Health Care Education/Training Program; Visit Provider Internal Medicine
DX: R07.89 Other chest pain (principal); K21.9 Gastro-esophageal reflux disease without esophagitis; R00.0 Tachycardia, unspecified; R10.13 Epigastric pain; E78.5 Hyperlipidemia, unspecified; I10 Essential (primary) hypertension; I49.8 Other specified cardiac arrhythmias; D89.40 Mast cell activation, unspecified; G90.1 Familial dysautonomia [Riley-Day]; M85.80 Other specified disorders of bone density and structure, unspecified site; Z79.899 Other long term (current) drug therapy
CPT/HCPCS: 36415; 80053; 83690; 87635; 93005; 96361; 96374; 99285; J1650; 71046; 81003; 83880; 84443; 84484; 85025; 85379; 85610; 85730; 93010; 99217; 99219; G0378

== ENCOUNTER → 2022-02-06 00:48 | Outpatient (CLI) | payer OTHER, SELFPAY | PROVIDERS: PCP Student in an Organized Health Care Education/Training Program; Visit Provider Internal Medicine ==

== ENCOUNTER 2022-02-09 10:25 | Emergency (ER) | payer OTHER, SELFPAY ==
[2022-02-09 10:40] VITALS: BP 157/95; PULSE 81; RESP 16; TEMP 36.4; O2SAT 97
--- NOTE | 2022-02-09 11:32 | ED.GENADUL_ITS ---
Discharge Plan Disposition Patient Disposition: HOME Condition: Stable Discharge Details Clinical Impression: Swelling of face, Mast cell disorder Primary Care Provider: Naty Kim ED Provider: Jolynn Comer Home Meds and New Rx's Prescriptions: New prednisone 20 mg tablet 40 mg PO DAILY Qty: 8 0RF Rx Instructions: take two tablets daily for 4 days epinephrine 0.3 mg/0.3 mL auto-injector 0.3 ml subcut Q5-15M PRNQty: 2 0RF Rx Instructions: do not exceed 3 doses per episode Continued amlodipine 2.5 mg tablet 2.5 mg PO DAILY Qty: 90 3RF propranolol 10 mg tablet 10 mg PO TID Qty: 270 3RF hydralazine 10 mg tablet 10 mg PO TID Qty: 270 3RF Rx Instructions: Increase for BP elevations Ariel Enzyme 1 cap PO BID 0RF Rx Instructions: [place] lisinopril 10 mg tablet 10 mg PO DAILY Qty: 90 3RF Label Comments: not taking omeprazole 20 mg capsule,delayed release(DR/EC) 20 mg PO BID Qty: 60 1RF Label Comments: not taking amlodipine 2.5 mg tablet 2.5 mg PO DAILY Qty: 90 3RF ibuprofen 200 mg tablet 200 mg PO QHS PRN0RF Label Comments: not taking multivitamin [Multi-Day] 1 EACH tablet 1 ea PO DAILY 0RF aspirin 81 MG tablet,delayed release (DR/EC) 81 mg PO DAILY 0RF loratadine [Claritin] 10 mg Tablet 20 mg PO DAILY 0RF famotidine 20 mg Tablet 20 mg PO BID Qty: 60 1RF simethicone 80 mg Tablet,Chewable 160 mg PO PC & HS Qty: 120 1RF diphenhydramine HCl [Benadryl] 25 mg capsule 50 mg PO BID PRN (Reason: allergy symptoms) 0RF Rx Instructions: Benadryl takes BID and then additional prn not to exceed 150mg/24hrs. magnesium oxide 250 mg magnesium tablet 400 mg PO DAILY 0RF atorvastatin [Lipitor] 10 mg tablet 10 mg PO HS 0RF Probiotic 3 billion cell Capsule PO PRN PRN0RF Discharge Instructions Additional Instructions: Continue taking your allergy medication as previously prescribed Take the prednisone daily for the neck several days, you received a dose today so do not take this medication again until tomorrow Follow-up with your PCP regarding allergy follow-up Return earlier should you have any new or worsening complaints I am prescribing you an EpiPen, I would only use a you are having significant difficulty swallowing, tongue swelling, or abrupt worsening of your symptoms Referrals: Naty Kim DO [Primary Care Provider] - Discharge Data Discharge Date/Time-TO BE ENTERED AT DEPARTURE: 02/09/22 13:20 Medical Decision Making Patient appears well, there is no evidence of anaphylaxis It sounds like she is being evaluated for possibility of mast cell disease with a history of dysautonomia without defined diagnosis yet for her allergies She is reportedly following up to [facility] with referral from PCP Patient appears well throughout this encounter, her vitals are stable although mildly hypertensive She started on prednisone given her presenting signs and symptoms and will continue on her allergy medications at home She is also given an EpiPen, she does have a listed hypersensitivity although should her symptoms progress I think the benefit of using this medication outweighs the risk recheck in 24 to 48 hours recommended Discharged home in stable condition with stable vitals Medical Records Medical records reviewed: Yes I reviewed the patient's medical records. HPI General Date/Time Provider Initiated Documentation: 02/09/22 10:26 . HPI Narrative: This 66-year-old female presents with PMH of dysautonomia, some sort of mast cell undiagnosed disorder, hypertension, and GERD with report of possible histamine reaction to different foods. She states yesterday she was eating in a restaurant and had facial swelling and difficulty swallowing after eating fish which she has had previously. She states that she took half and Benadryl and had improvement of her symptoms but had another reported episode with burping, mild facial swelling and some difficulty swallowing the evening about 7 PM and then awoke this morning with similar symptoms. 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 She denies any chest pain or shortness of breath. She denies any significant difficulty swallowing. She denies any fever or chills. She denies any additional complaints at this time. Related Data Home Medications Medication Instructions Recorded Confirmed multivitamin (Multi-Day) 1 ea PO DAILY 01/23/14 02/09/22 aspirin 81 mg tablet,delayed 81 mg PO DAILY 07/15/17 02/09/22 release ibuprofen 200 mg tablet 200 mg PO QHS PRN tab 11/11/19 01/28/22 amlodipine 2.5 mg tablet 2.5 mg PO DAILY #90 tab 03/08/21 01/28/22 hydralazine 10 mg tablet 10 mg PO TID #270 tab 04/19/21 02/09/22 propranolol 10 mg tablet 10 mg PO TID #270 tab 04/19/21 02/09/22 loratadine 10 mg tablet (Claritin) 20 mg PO DAILY 01/18/22 02/09/22 famotidine 20 mg tablet 20 mg PO BID #60 tab 01/19/22 02/09/22 simethicone 80 mg chewable tablet 160 mg PO PC & HS #120 tab 01/19/22 02/09/22 Ariel Enzyme 1 cap PO BID 01/28/22 01/28/22 amlodipine 2.5 mg tablet 2.5 mg PO DAILY #90 tab 01/28/22 02/09/22 lisinopril 10 mg tablet 10 mg PO DAILY #90 tab 01/28/22 01/28/22 omeprazole 20 mg capsule,delayed 20 mg PO BID #60 tab-cap 01/28/22 01/28/22 release atorvastatin 10 mg tablet (Lipitor) 10 mg PO HS 02/09/22 02/09/22 diphenhydramine HCl 25 mg capsule 50 mg PO BID PRN 02/09/22 02/09/22 (Benadryl) epinephrine 0.3 mg/0.3 mL 0.3 ml SUBCUT Q5-15M PRN #2 ea 02/09/22 injection, auto-injector lactobacillus combination no.4 3 PO PRN PRN 02/09/22 billion cell capsule (Probiotic) magnesium oxide 400 mg PO DAILY 02/09/22 02/09/22 prednisone 20 mg tablet 40 mg PO DAILY #8 tab 02/09/22 Previous Rx's Medication Instructions Recorded amlodipine 2.5 mg tablet 2.5 mg PO DAILY #90 tab 03/08/21 hydralazine 10 mg tablet 10 mg PO TID #270 tab 04/19/21 propranolol 10 mg tablet 10 mg PO TID #270 tab 04/19/21 famotidine 20 mg tablet 20 mg PO BID #60 tab 01/19/22 simethicone 80 mg chewable tablet 160 mg PO PC & HS #120 tab 01/19/22 amlodipine 2.5 mg tablet 2.5 mg PO DAILY #90 tab 01/28/22 lisinopril 10 mg tablet 10 mg PO DAILY #90 tab 01/28/22 omeprazole 20 mg capsule,delayed 20 mg PO BID #60 tab-cap 01/28/22 release epinephrine 0.3 mg/0.3 mL 0.3 ml SUBCUT Q5-15M PRN #2 ea 02/09/22 injection, auto-injector prednisone 20 mg tablet 40 mg PO DAILY #8 tab 02/09/22 Allergies Allergy/AdvReac Type Severity Reaction Status Date / Time codeine Allergy Severe headaches Verified 02/09/22 11:06 hydrochlorothiazide Allergy Severe dizzyness Verified 02/09/22 11:06 clindamycin Allergy Intermediate diarrehea Verified 02/09/22 11:06 Penicillins Allergy Mild hives Verified 02/09/22 11:06 azithromycin Allergy Unknown irregular Verified 02/09/22 11:06 heart beat epinephrine HCl AdvReac Severe HYPERSENSIT Verified 02/09/22 11:06 [From Adrenalin] REILLY General Stated Complaint: Allergic WILDER: 3 Review of Systems All systems reviewed & are unremarkable except as noted in HPI and below PFSH All Active Problems (Updated 02/09/22 @ 13:07 by CORAL Abraham) Nausea (Acute) Abdominal bloating (Acute) Swelling of face (Acute) New, possibly assoc with ACEi (~ angioedema).. 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 episodes of hives, fatigue, illness. Good results with low histamine diet. POTS (postural orthostatic tachycardia syndrome) (Acute 06/08/18) Pt knows/manages herself well, decreased CCB (LE Edema) and added hydralazine in Jul 2018. Unable to tolerate higher dose ACEi. Dysautonomia orthostatic hypotension syndrome (Acute 12/17/17) Ocular migraine (Acute 06/08/18) History of weakness of extremity (Chronic) No h/o CVA, no major decline reported .. but baseline evaluation appreciated. Left sided LE weakness noted on exam (UE seem symm). Encounter for screening and preventative care (Acute) Reviewed med problems, meds. Chol screen [ ] , spring 2018. Mammo (-). [place] [ ] (declined 2' POTS & Anesth risks)(FITS?). Dexa done (Osteopenia). Reviewed activity, diet. Couns on hydration, diet examples, prevent care for left veronica ed weakness.. Osteopenia (Chronic ~06/26/09) L hip T score -1.6, repeated 08/10/18 Left hip -1.9 Hypertension (Acute) Hypercholesterolemia (Acute 06/11/09) 2015 labs show HyperTRIG, with Chol WNL (rubia meds). Low HDL notable. Statin refilled 08/2018, labs ordered for Spring 2018, [ ] Medical History (Updated 02/09/22 @ 13:07 by CORAL Abraham) GERD Hyperlipidemia POTS syndrome Surgical History Appendectomy Arthroplasty of knee Ligation of fallopian tube Tonsillectomy and adenoidectomy Family History Other Personal history of malignant neoplasm uncle-colon ca Heart disease Hyperlipidemia Other Personal history of malignant neoplasm aunt -breast ca Heart disease Alcohol use Mother Dementia Hyperlipidemia Heart disease Essential hypertension Father Essential hypertension Stroke Heart disease Social History Smoking/Tobacco Use Status: Never Smoking risk assessment performed?: Yes Alcohol Intake: never Substance use type: does not use Adopted: No Caregiver/Support person: No Foster care: No Household members: spouse Housing: house Number of Children: 2 Communication Needs: Corrective Lenses Do you need help understanding health information?: Rarely 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 Pets and animals: No (formerly had a dog who last year 2020) Sexually active: No Do you think of yourself as: straight/heterosexual Current gender identity: female What is your relationship status?: How often do you talk on the phone with friends or family?: once per week How often do you get together with friends or relatives?: never How often do you attend christian or gnosticism services?: decline to answer Do you belong to any clubs or organized social groups?: no Panel score (0-1 are the most socially isolated patients): 1 What type of physical activity do you participate in: none Duration: 30-45 minutes/day Frequency: 5-6 times per week Bella/Yazidism: confucianism Special bella needs: No Seatbelt use: always Helmet use: Yes Helmet use: never Drive 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 ride w/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 Working smoke detector in home: Yes Fire extinguisher in home: No Carbon monox detector in home: Yes Do you feel safe at home: Yes Do you feel safe in your relationship?: Yes Exam Const General: cooperative, comfortable and no acute distress HENMT Other: uvula midline, oropharynx patent, no apparent swelling noted to this examiner Eyes Pupils: PERRL Neck Other: No stridor Resp Effort & Inspection: normal respiratory effort Auscultation: clear to auscultation bilaterally Cardio Rate: regular rate Rhythm: regular rhythm GI Inspection: normal to inspection Skin General skin exam: no rashes or lesions noted Neuro General: patient alert and patient oriented x3 Extrem General: normal to inspection Course Vital Signs Vital signs: Vital Signs Temperature 36.4 C L 02/09/22 10:40 Pulse 81 02/09/22 10:40 Respiratory Rate 16 02/09/22 10:40 Blood Pressure 157/95 H 02/09/22 10:40 Pulse Oximetry 97 02/09/22 10:40 Temperature 36.4 C L 02/09/22 10:40 Temperature Source Tympanic 02/09/22 10:40 Pulse 81 02/09/22 10:40 Respiratory Rate 16 02/09/22 10:40 Respiratory Effort 02/09/22 11:03 Blood Pressure 157/95 H 02/09/22 10:40 Pulse Oximetry 97 02/09/22 10:40 Oxygen Delivery Method Room Air 02/09/22 10:40 Oxygen Flow Rate 0 02/09/22 10:40 Pain Level 2 02/09/22 10:59
[2022-02-09] MEDS: methylPREDNISolone SUCC 125 MG VIAL IVP (11:45)
[2022-02-09] MEDS: Simethicone 80 MG CHEW 40 MG PO (11:45)
[2022-02-09] MEDS: FAMOTIDINE 20 MG in Normal Saline 100 ML 400 MG IVPB (11:45)
[2022-02-09] MEDS: diphenhydrAMINE 50 MG/ML VIAL 25 MG IVP (11:46)
[2022-02-09 12:06] LABS: Absolute Basophil Count 0.02 10^3/uL (0.0-0.2); Absolute Eosinophil Count 0.04 10^3/uL (0.0-0.7); Absolute Monocyte Count 0.35 10^3/uL (0.1-0.8); Absolute Neutrophil Count 2.84 10^3/uL (1.2-6.7); Basophils % 0.4; Eosinophils % 0.8; HCT 43.6 % (36.0-46.0); HGB 14.7 g/dL (11.2-15.7); Lymphocytes % 31.6; MCH 31.3 pg (27.0-33.0); MCHC 33.7 % (32.0-36.0); MPV 11.4 fL (8.0-11.0); Monocytes % 7.4; Neutrophils % 59.8; Nucleated RBC 0 %; Platelet Count 247 10^3/uL (130-400); RBC 4.69 10^6/uL (3.93-5.22); RDW 12.1 % (11.7-14.6); RDW-SD 41.5 fL; WBC 4.75 10^3/uL (4.4-10.8)
[2022-02-09 12:20] LABS: ALT 43 U/L (14-59); AST 18 U/L (15-37); Albumin 3.8 g/dL (3.4-5.0); Alkaline Phosphatase 95 U/L (46-116); Anion Gap 9.7 mmol/L (3-11); BUN 13 mg/dL (7-18); Bilirubin, Total 0.5 mg/dL (0.2-1.0); CO2 26.3 mmol/L (21.0-32.0); CREATININE 0.8 mg/dL (0.55-1.02); Chloride 103 mmol/L (98-107); Glucose 104 mg/dL (74-106); Potassium 4.2 mmol/L (3.5-5.1); Sodium 139 mmol/L (136-145); Total Protein 7.3 g/dL (6.4-8.2)
[2022-02-09 13:17] VITALS: BP 130/72; PULSE 84; RESP 16; TEMP 36.8; O2SAT 99
== END 2022-02-09 13:20 | disposition home or self-care (01) ==
PROVIDERS: Emergency Provider Physician Assistant; PCP Student in an Organized Health Care Education/Training Program
DX: R22.0 Localized swelling, mass and lump, head (principal); D89.40 Mast cell activation, unspecified
CPT/HCPCS: 80053; 96365; 96375; 99284; 85025; 99283; J1200; J2930

== ENCOUNTER 2022-03-11 01:15 | Outpatient (CLI) | payer OTHER, SELFPAY ==
[2022-03-11 23:09] LABS: Calculated LDL 131 mg/dL (<100); Cholesterol 205 mg/dL (<200); HDL Cholesterol 34 mg/dL (40-60); Triglyceride 201 mg/dL (<150)
[2022-03-12 09:54] LABS: C4 Complement 29 mg/dL (13-39)
[2022-03-12 23:42] LABS: Banana, IgE <0.35 kU/L; Barley, IgE <0.35 kU/L; Beef IgE <0.35 kU/L; Black/White Pepper IgE <0.35 kU/L; Broccoli IgE <0.35 kU/L; Cacao/Cocoa, IgE <0.35 kU/L; Cinnamon, IgE <0.35 kU/L; Corn-Food IgE <0.35 kU/L; Egg Whole IgE <0.10 kU/L; Milk, IgE <0.35 kU/L; Onion, IgE <0.35 kU/L; Soybean IgE <0.35 kU/L
[2022-03-13 00:04] LABS: Baker's Yeast, IgE <0.35 kU/L; Strawberry, IgE <0.35 kU/L; White Potato, IgE <0.35 kU/L
== END 2022-03-11 01:16 | disposition home or self-care (01) ==
LOC: LBO 01:16
PROVIDERS: Physician Assistant; PCP Student in an Organized Health Care Education/Training Program; Visit Provider Student in an Organized Health Care Education/Training Program
DX: E78.00 Pure hypercholesterolemia, unspecified (principal); I10 Essential (primary) hypertension; R14.0 Abdominal distension (gaseous); R19.7 Diarrhea, unspecified; T78.3XXA Angioneurotic edema, initial encounter; T78.1XXA Other adverse food reactions, not elsewhere classified, initial encounter
CPT/HCPCS: 36415; 80061; 86003; 83520; 86160; 86161

== ENCOUNTER 2022-03-26 04:17 | Outpatient (CLI) | payer OTHER, SELFPAY ==
[2022-03-28 15:29] LABS: C1 Esterase Inhib, Functional >90 %of norm
== END 2022-03-26 04:18 | disposition home or self-care (01) ==
LOC: LBO 04:17
PROVIDERS: PCP Student in an Organized Health Care Education/Training Program; Visit Provider Student in an Organized Health Care Education/Training Program
DX: R14.0 Abdominal distension (gaseous) (principal); R19.7 Diarrhea, unspecified; T78.1XXA Other adverse food reactions, not elsewhere classified, initial encounter; T78.3XXA Angioneurotic edema, initial encounter
CPT/HCPCS: 36415; 86161

== ENCOUNTER → 2022-06-06 00:06 | Outpatient (CLI) | payer OTHER, SELFPAY ==
--- NOTE | 2022-06-06 11:12 | DI.DEXA_ITS ---
Exam(s) XR DEXA BONE DENSITY W/WO MARLENE EXAM: XR DEXA BONE DENSITY W/WO MARLENE CLINICAL HISTORY: re-evaluate bone density,OSTEOPENIA, M85.80 TECHNIQUE: COMPARISON: DX XR DEXA BONE DENSITY W/WO MARLENE from 08/10/2018 FINDINGS: Lateral Spine Image: There is now compression deformity at L3 which was not present on the prior exam ination. Left hip: Total T-Score: -2.1. This compares to -1.9 on the prior examination. Total Z-Score: -0.7 T- and Z-scores: Findings are consistent with osteopenia. There is osteoporosis in the femoral neck with a T-score of -2.6. Lumbar Spine: Total T-Score: -0.5. This compares to -0.4 on the prior examination. Total Z-Score: 1.5 T- and Z-scores: Within normal limits. IMPRESSION: 1. New L3 compression fracture deformity. 2. Osteopenia in the left hip.
--- NOTE | 2022-06-06 12:02 | DI.MAMMO_ITS ---
Exam(s) MAMMO SCREENING EXAM: MAMMO SCREENING CLINICAL HISTORY: screening,Z12.39 TECHNIQUE: Bilateral full field digital CC and MLO mammographic images were obtained with 3D tomosyn thesis and utilizing computer aided detection (CAD). COMPARISON: Available for comparison. FINDINGS: Masses/Architectural Distortion: There has been no change in appearance of the nodule in the outer ri ght breast. There is a stable ovoid nodule in the outer left breast. No suspicious nodules or areas of architectural distortion are present. Microcalcifications: No suspicious pleomorphic-type are seen. Skin Thickening/Nipple Retraction: None. IMPRESSION: 1. No significant interval change with no specific features of malignancy noted. 2. Unless there is more urgent need, screening mammography is recommended, as per [employer] guidelines. BI-RADS Category 2 - Benign Findings Breast Density - Category B - Scattered areas of fibroglandular density Breast density category C or D implies that the patient has dense breast tissue. Dense breast tissue is very common and is not abnormal but dense breast tissue can make it harder to find cancer on a ma mmogram. Also, dense breast tissue may increase their breast cancer risk. This information about the result of the mammogram report was provided to the patient to raise their awareness. Use this report when you speak with the patient about their risks for breast cancer, which includes their family hist ory. At that time, you may recommend for more screening tests (Ultrasound or MRI) as they might be us eful based on their risk. A negative radiographic report should not delay biopsy if a dominant or clinically suspicious mass is present. Up to ten percent of cancers are not identified on mammography. A negative report may reinforce clinical impression. Adenosis and dense breasts may obscure an underlying neoplasm. False positive reports average 6 to 10%. Patient will receive a letter notifying them of these results.
== END ==
PROVIDERS: PCP Student in an Organized Health Care Education/Training Program; Visit Provider Student in an Organized Health Care Education/Training Program
DX: Z12.31 Encounter for screening mammogram for malignant neoplasm of breast (principal); M85.88 Other specified disorders of bone density and structure, other site; Z13.820 Encounter for screening for osteoporosis
CPT/HCPCS: 77063; 77067; 77080

== ENCOUNTER → 2022-06-12 00:40 | Outpatient (CLI) | payer OTHER, SELFPAY ==
--- NOTE | 2022-06-12 07:45 | DI.US_ITS ---
APPROVED REPORT EXAM: Comprehensive 2D, Doppler, and color-flow Echocardiogram Patient Location: Out-Patient Honey Processor: Ana Thakur RDCS (AE) Indications: Evaluate EF, h/o atrial enlargement, HTN, Tachycardia Other Information Study Quality: Adequate Conclusion Normal left ventricular wall thickness and chamber size. Estimated ejection fraction is 65%. Wall m otion is normal Normal right ventricular size and systolic function Both atria are normal in size Aortic valve is trileaflet with trace regurgitation There is no additional structural or hemodynamically significant valvular disease Normal estimated right ventricular systolic pressure, 25.5 mmHg Wall motion Left Ventricle The left ventricle is normal size. The left ventricular systolic function is normal. The left ventric ular ejection fraction is within the normal range. There is normal left ventricular wall thickness. T here is normal LV segmental wall motion. There is no ventricular septal defect visualized. LVEF is 65 %. Right Ventricle The right ventricle is normal size. The right ventricular systolic function is normal. The RVSP is 25 .5mmHg. Atria The left atrium size is normal. The right atrium size is normal. The interatrial septum is intact wit h no evidence for an atrial septal defect. Aortic Valve The aortic valve is normal in structure. Aortic valve is trileaflet. There is no aortic valvular sten osis. Trace aortic regurgitation. Mitral Valve The mitral valve is normal in structure. No evidence of mitral valve stenosis. Trace mitral regurgita tion. Tricuspid Valve The tricuspid valve is normal in structure. There is no tricuspid valve stenosis. Trace tricuspid reg urgitation. Pulmonic Valve The pulmonary valve is normal in structure. There is no pulmonic valvular stenosis. Trace pulmonic re gurgitation. Great Vessels The aortic root is normal in size. The ascending aorta is normal in size. Aortic arch is normal in ca liber. IVC is normal in size and collapses >50% with inspiration. Pericardium There is no pericardial effusion. 2D Dimensions IVSD d PLAX 1.03 cm F: 0.6-1.0 LV Vol A2C d MOD 69.9 mL LVPW d PLAX 1.05 cm F: 0.6 - 1.0 LV Vol A4C d MOD 78.0 mL LVID d PLAX 4.27 cm F: 3.8 - 5.2 LA vol/ BSA A2C s A-L 22.6 mL/m2 LVDs 2.95 cm F: 2.2 - 3.5 LA vol/ BSA A4C s A-L 23.1 mL/m2 Ao Root d 2.64 cm F: 2.7 - 3.3 LA Vol/ BSA Biplane s A-L 23.6 mL/m2 RA Area A4C 13.40 cm2 LA Area A4C s MOD 15.40 cm2 RA Vol/ BSA A4C s A-L 16.2 mL/m2 LA Area A2C s MOD 15.76 cm2 Ao Asc Diam d 3.21 cm F: 2.3 - 3.1 LV EF A4C MOD 65.5 % LV EF Teichholz 58.6 % LV EF A2C MOD 65.0 % LVEF (Gerber's) 65.24 % F: 54 - 74 LV EF Biplane MOD 65.2 % LV Volume 58.69 mL F: 46 - 106 SV 48.31 mL LV Volume Index 34.32 mL/m2 F: 29 - 61 SV Index 28.27 mL/m2 LV Vol Biplane MOD 74.0 mL FS 30.70 % M-Mode TAPSE 1.60 cm (M/F) >1.7 LV Diastology MV E' medial 0.085 (>0.07 m/s) E/A Ratio 1.2 LV E/e MED 8.35 (<14) MV E Vmax 0.71 (0.4-1.3 m/s) MV E' lateral 0.085 (>0.1 m/s) MV A Vmax 0.60 (0.4-1.3 m/s) LV E/e LAT 8.35 (<14) MV E/A Ratio 1.12 MV E/E' medial 8.37 MV E/E' lateral 8.37 Aortic Valve LVOT Area 2.99 cm2 AoV Area Vmax 2.01 cm2 LVOT Vmax 0.94 m/s AoV Area/ BSA (Vmax) 1.18 cm2/m2 LVOT Mean Miguel. 0.59 m/s YURI Mean Miguel. 1.63 cm2 LVOT Peak Grad 3.6 mmHg YURI Mean Miguel. Index 0.96 cm2/m2 LVOT Mean Grad 1.7 mmHg LVOT VTI 0.223 m LVOT Diam s 1.90 cm AoV Vmax 1.40 m/s Velocity Ratio 0.67 AoV Mean Miguel. 1.08 m/s AoV Peak Grad 7.8 mmHg LVOT SV 66.55 mL AoV Mean Grad 5.0 mmHg AoV VTI 0.339 m AoV Area VTI 1.96 cm2 AoV Area/ BSA (VTI) 1.15 cm/m2 Mitral Valve MV DT 169 (160-240 msec) MV PHT 49 msec MV Area PHT 4.50 cm2 MV VTI 0.261 m MV Area VTI 2.55 (4.0-6.0 cm2) Pulmonary Valve PV Vmax 0.87 (0.5-1.5 m/s) RVOT Peak Gr. 1.91 mmHg PV Peak Grad 3.0 mmHg RVOT Mean Gr. 1.15 mmHg PV Mean Grad 1.7 mmHg RVOT VTI 0.166 m PV VTI 0.184 m RVOT Vmax 0.69 m/s Tricuspid Valve TR Peak Grad 22.4 mmHg TR Vmax 2.37 m/s RA Pressure 3.00 mmHg RVSP (TR) 25.5 mmHg
== END ==
PROVIDERS: PCP Student in an Organized Health Care Education/Training Program; Visit Provider Student in an Organized Health Care Education/Training Program
DX: G90.3 Multi-system degeneration of the autonomic nervous system (principal); I10 Essential (primary) hypertension; I95.1 Orthostatic hypotension; R00.0 Tachycardia, unspecified; R10.13 Epigastric pain; R22.0 Localized swelling, mass and lump, head
CPT/HCPCS: 93306

== ENCOUNTER 2022-06-15 09:33 | Emergency (ER) | payer OTHER, SELFPAY ==
[2022-06-15 09:46] VITALS: BP 180/83; PULSE 69; RESP 18; TEMP 36.9; O2SAT 96
--- NOTE | 2022-06-15 10:05 | W.ED.GENAD ---
Discharge Plan Disposition Patient Disposition: HOME Condition: Improving Discharge Details Chief Complaint: RashLesion Clinical Impression: Facial edema Primary Care Provider: Naty Kim ED Provider: Obie Rao Home Meds and New Rx's Prescriptions: No Action lisinopril 10 mg tablet 10 mg PO DAILY Qty: 90 3RF Hold Instructions: Adverse Reaction Label Comments: not taking amlodipine 2.5 mg tablet 2.5 mg PO DAILY Qty: 90 3RF Gokul Enzyme 1 cap PO BID Rx Instructions: GOKUL omeprazole 10 mg capsule,delayed release(DR/EC) 10 mg PO DAILY hydralazine 10 mg tablet 10 mg PO TID Qty: 270 3RF Rx Instructions: Increase for BP elevations propranolol 10 mg tablet 10 mg PO TID Qty: 270 3RF ibuprofen 200 mg tablet 200 mg PO QHS PRN Hold Instructions: Adverse Reaction Label Comments: not taking Zyrtec 10 mg capsule 10 mg PO DAILY PRN multivitamin [Multi-Day] 1 EACH tablet 1 ea PO DAILY aspirin 81 MG tablet,delayed release (DR/EC) 81 mg PO DAILY Hold Instructions: Adverse Reaction famotidine 20 mg Tablet 20 mg PO BID Qty: 60 1RF diphenhydramine HCl [Benadryl] 25 mg capsule 50 mg PO BID PRN (Reason: allergy symptoms) Rx Instructions: Benadryl takes BID and then additional prn not to exceed 150mg/24hrs. magnesium oxide 250 mg magnesium tablet 400 mg PO DAILY atorvastatin [Lipitor] 10 mg tablet 10 mg PO HS Probiotic 3 billion cell Capsule PO PRN PRN epinephrine 0.3 mg/0.3 mL auto-injector 0.3 ml subcut Q5-15M PRNQty: 2 0RF Rx Instructions: do not exceed 3 doses per episode Discharge Instructions Instructions: Angioedema (ED) Additional Instructions: Please follow-up with your primary care physician as well as your GI specialist and precision crop manager. Please return to the emergency department if you have any worsening symptoms. Medical Decision Making 67-year-old female with likely multiple food and/or medication sensitivities, now on daily cetirizine presents with mild facial swelling involving her eyes and lips that is now resolving, endorses starting a new taste last night, denies trouble swallowing speaking or breathing. Patient is nontoxic afebrile, tolerating secretions normal voice no stridor. No rash appreciated. Hemodynamically stable. Consider mild allergic reaction versus mild angioedema. No evidence of infectious source. Patient is feeling better already before arrival. Will trial dexamethasone and famotidine. Light fluids. Basic labs and will draw a tryptase level as her precision crop manager is requesting this. Likely to be discharged home with close follow-up and return precautions. 11: 15 patient resting comfortably no acute distress. Facial swelling and lip swelling have greatly improved. No respiratory symptoms. No GI symptoms. Home care instructions and return precautions given. Patient is going to discontinue the toothpaste that she used last night. We will follow-up with her precision crop manager and her primary care as well as GI specialist. HPI General Date/Time Provider Initiated Documentation: 06/15/22 09:41. HPI Narrative: 67-year-old female history of prior angioedema, multiple sensitivities to likely foods and meds, presents with resolving facial swelling involving eyes and lips, denies trouble speaking breathing or swallowing. Is on a new medication Xyzal which has been helping her symptoms. Related Data Home Medications Medication Instructions Recorded Confirmed multivitamin (Multi-Day tablet) 1 ea PO DAILY 01/23/14 04/16/22 aspirin 81 mg tablet,delayed 81 mg PO DAILY 07/15/17 04/16/22 release ibuprofen 200 mg tablet 200 mg PO QHS PRN 11/11/19 02/19/22 famotidine 20 mg tablet 20 mg PO BID #60 tabs 01/19/22 04/16/22 amlodipine 2.5 mg tablet 2.5 mg PO DAILY #90 tabs 01/28/22 04/16/22 lisinopril 10 mg tablet 10 mg PO DAILY #90 tabs 01/28/22 02/19/22 atorvastatin 10 mg tablet (Lipitor) 10 mg PO HS 02/09/22 04/16/22 diphenhydramine HCl 25 mg capsule 50 mg PO BID PRN allergy symptoms 02/09/22 04/16/22 (Benadryl) epinephrine 0.3 mg/0.3 mL 0.3 ml subcut Q5-15M PRN #2 ea 02/09/22 04/16/22 injection, auto-injector lactobacillus combination no.4 3 PO PRN PRN 02/09/22 02/19/22 billion cell capsule (Probiotic) magnesium oxide 400 mg PO DAILY 02/09/22 04/16/22 cetirizine 10 mg capsule (Zyrtec) 10 mg PO DAILY PRN 02/18/22 04/16/22 Gokul Enzyme 1 cap PO BID 04/15/22 04/16/22 hydralazine 10 mg tablet 10 mg PO TID #270 tabs 04/15/22 04/16/22 omeprazole 10 mg capsule,delayed 10 mg PO DAILY 04/15/22 04/16/22 release propranolol 10 mg tablet 10 mg PO TID #270 tabs 04/15/22 04/15/22 Previous Rx's Medication Instructions Recorded famotidine 20 mg tablet 20 mg PO BID #60 tabs 01/19/22 amlodipine 2.5 mg tablet 2.5 mg PO DAILY #90 tabs 01/28/22 lisinopril 10 mg tablet 10 mg PO DAILY #90 tabs 01/28/22 epinephrine 0.3 mg/0.3 mL 0.3 ml subcut Q5-15M PRN #2 ea 02/09/22 injection, auto-injector hydralazine 10 mg tablet 10 mg PO TID #270 tabs 04/15/22 propranolol 10 mg tablet 10 mg PO TID #270 tabs 04/15/22 Allergies Allergy/AdvReac Type Severity Reaction Status Date / Time codeine Allergy Severe headaches Verified 04/15/22 15:54 hydrochlorothiazide Allergy Severe Dizziness/L Verified 04/15/22 15:54 ighthead clindamycin Allergy Intermediate Diarrhea Verified 04/15/22 15:54 lisinopril Allergy Intermediate angioedema Verified 04/15/22 16:17 Penicillins Allergy Mild hives Verified 04/15/22 15:54 azithromycin Allergy Unknown irregular Verified 04/15/22 15:54 heart beat epinephrine HCl AdvReac Severe HYPERSENSIT Verified 04/15/22 15:54 [From Adrenalin] REILLY General Stated Complaint: RashLesion WILDER: 3 Review of Systems Narrative: Review of Systems Constitutional: negative Eyes: negative ENT: Lip swelling eye swelling Cardiovascular: negative Respiratory: negative Gastrointestinal: negative : negative Musculoskeletal: negative Skin: negative Neurologic: negative Psych: negative PFSH All Active Problems (Updated 06/15/22 @ 11:15 by Obie Rao MD) Facial edema (Acute) Gastrointestinal food sensitivity (Acute) Angioedema (Acute) Nausea (Acute) Abdominal bloating (Acute) Swelling of face (Acute) New, possibly assoc with ACEi (~ angioedema).. 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 episodes of hives, fatigue, illness. Good results with low histamine diet. POTS (postural orthostatic tachycardia syndrome) (Acute 06/08/18) Pt knows/manages herself well, decreased CCB (LE Edema) and added hydralazine in Jul 2018. Unable to tolerate higher dose ACEi. Dysautonomia orthostatic hypotension syndrome (Acute 12/17/17) Ocular migraine (Acute 06/08/18) History of weakness of extremity (Chronic) No h/o CVA, no major decline reported .. but baseline evaluation appreciated. Left sided LE weakness noted on exam (UE seem symm). Encounter for screening and preventative care (Acute) Reviewed med problems, meds. Chol screen [ ] , spring 2018. Mammo (-). Angelica [ ] (declined 2' POTS & Anesth risks)(FITS?). Dexa done (Osteopenia). Reviewed activity, diet. Couns on hydration, diet examples, prevent care for left sided weakness.. Osteopenia (Chronic ~06/26/09) L hip T score -1.6, repeated 08/10/18 Left hip -1.9 Hypertension (Acute) Hypercholesterolemia (Acute 06/11/09) 2015 labs show HyperTRIG, with Chol WNL (rubia meds). Low HDL notable. Statin refilled 08/2018, labs ordered for Spring 2018, [ ] Medical History (Updated 06/15/22 @ 11:15 by Obie Rao MD) GERD Hyperlipidemia POTS syndrome Surgical History Appendectomy Arthroplasty of knee Ligation of fallopian tube Tonsillectomy and adenoidectomy Family History Other Personal history of malignant neoplasm uncle-colon ca Heart disease Hyperlipidemia Other Personal history of malignant neoplasm aunt -breast ca Heart disease Alcohol use Mother Dementia Hyperlipidemia Heart disease Essential hypertension Father Essential hypertension Stroke Heart disease Social History Smoking/Tobacco Use Status: Never Smoking risk assessment performed?: Yes Alcohol Intake: never Substance use type: does not use Adopted: No Caregiver/Support person: No Foster care: No Household members: spouse Housing: house Number of Children: 2 Communication Needs: Corrective Lenses Do you need help understanding health information?: Rarely 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 Pets and animals: No (formerly had a dog who last year 2020) Sexually active: No Do you think of yourself as: straight/heterosexual Current gender identity: female What is your relationship status?: How often do you talk on the phone with friends or family?: once per week How often do you get together with friends or relatives?: never How often do you attend advent or restoration services?: decline to answer Do you belong to any clubs or organized social groups?: no Panel score (0-1 are the most socially isolated patients): 1 What type of physical activity do you participate in: none Duration: 30-45 minutes/day Frequency: 5-6 times per week Bella/Latter-Day: zoroastrianism Special bella needs: No Seatbelt use: always Helmet use: Yes Helmet use: never Drive intox or ride w/intox courtesy car driver: No Working smoke detector in home: Yes Fire extinguisher in home: No Carbon monox detector in home: Yes Do you feel safe at home: Yes Do you feel safe in your relationship?: Yes Exam Narrative Exam Narrative: Physical Examination General: alert, awake, cooperative, resting comfortably, no acute distress HEENT: Minimal periorbital edema, minimal edema to anterior lips, patent oropharynx, no lingular or oropharyngeal involvement, normal voice tolerating secretions no stridor normocephalic, atraumatic; PERRL, EOM intact, conjunctiva normal; no nasal discharge; moist mucous membranes, oral and pharyngeal mucosa normal, tolerating secretions Neck: supple, trachea midline; full ROM Chest: normal to inspection Respiratory: normal respiratory effort, speaking in full sentences, clear to auscultation, no wheezing, rales or rhonchi Cardiac: regular rate, regular rhythm, S1S2 intact, no murmurs rubs or gallops GI: abdomen soft, non-tender, non-distended; no palpable mass or hepatosplenomegaly Skin: no lesions, rashes or trauma appreciated Neuro: AAOx3, normal speech, moving all extremities Psych: Appropriate mood and affect Course Vital Signs Vital signs: Vital Signs Temperature 36.9 C 06/15/22 09:46 Pulse 69 06/15/22 09:46 Respiratory Rate 18 06/15/22 09:46 Blood Pressure 180/83 H 06/15/22 09:46 Pulse Oximetry 96 06/15/22 09:46 Temperature 36.9 C 06/15/22 09:46 Temperature Source Temporal Artery Scan 06/15/22 09:49 Pulse 69 06/15/22 09:46 Respiratory Rate 18 06/15/22 09:46 Respiratory Effort Non-Labored 06/15/22 09:49 Blood Pressure 180/83 H 06/15/22 09:46 Pulse Oximetry 96 06/15/22 09:46 Oxygen Delivery Method Room Air 06/15/22 09:46 Oxygen Flow Rate 0 06/15/22 09:46 Pain Level 0 06/15/22 09:49
[2022-06-15 10:14] LABS: Abs Immature Grans 0.01 10^3/uL (0.0-0.06); Absolute Basophil Count 0.02 10^3/uL (0.0-0.2); Absolute Eosinophil Count 0.06 10^3/uL (0.0-0.7); Absolute Lymphocyte Count 1.38 10^3/uL (1.2-3.4); Absolute Monocyte Count 0.31 10^3/uL (0.1-0.8); Basophils % 0.4; Eosinophils % 1.2; HCT 44.5 % (36.0-46.0); HGB 15.2 g/dL (11.2-15.7); Immature Grans % 0.2; Lymphocytes % 27.7; MCH 31.3 pg (27.0-33.0); MCHC 34.2 % (32.0-36.0); MCV 92 fL (80-95); MPV 10.9 fL (8.0-11.0); Monocytes % 6.2; Neutrophils % 64.3; Platelet Count 253 10^3/uL (130-400); RBC 4.86 10^6/uL (3.93-5.22); RDW 12.1 % (11.7-14.6); RDW-SD 41.1 fL; WBC 4.98 10^3/uL (4.4-10.8)
[2022-06-15] MEDS: Normal Saline 500 ML 1000 ML IV (10:17)
[2022-06-15] MEDS: Dexamethasone 10 MG/ML VIAL IVP (10:17)
[2022-06-15 10:29] LABS: ALT 51 U/L (14-59); AST 22 U/L (15-37); Albumin 3.7 g/dL (3.4-5.0); Alkaline Phosphatase 99 U/L (46-116); Anion Gap 6.9 mmol/L (3-11); BUN 11 mg/dL (7-18); Bilirubin, Total 0.4 mg/dL (0.2-1.0); CO2 28.1 mmol/L (21.0-32.0); CREATININE 0.8 mg/dL (0.55-1.02); Calcium 8.9 mg/dL (8.5-10.1); Chloride 108 mmol/L (98-107); Glucose 101 mg/dL (74-106); Potassium 4.3 mmol/L (3.5-5.1); Sodium 143 mmol/L (136-145); Total Protein 7.5 g/dL (6.4-8.2)
[2022-06-15 11:43] VITALS: BP 180/83; PULSE 69; RESP 18; TEMP 36.9; O2SAT 96
== END 2022-06-15 11:41 | disposition home or self-care (01) ==
PROVIDERS: Emergency Provider Emergency Medicine; PCP Student in an Organized Health Care Education/Training Program
DX: R60.0 Localized edema (principal)
CPT/HCPCS: 36415; 80053; 83520; 96361; 96374; 99284; 85025; 99283; J1100

== ENCOUNTER 2022-10-01 13:51 | Outpatient (REF) | payer OTHER, SELFPAY | END 2022-10-01 13:52 | disposition home or self-care (01) | LOC: LBN 13:51 | PROVIDERS: PCP Student in an Organized Health Care Education/Training Program; Visit Provider Nurse Practitioner Adult Health | DX: N39.0 Urinary tract infection, site not specified (principal); R31.0 Gross hematuria | CPT/HCPCS: 87077; 87086; 87186 ==

== ENCOUNTER 2023-02-07 11:20 | Emergency (ER) | payer OTHER, SELFPAY ==
[2023-02-07 11:35] VITALS: BP 108/90; PULSE 73; RESP 15; O2SAT 96
[2023-02-07] MEDS: Acetaminophen 325 MG TAB 650 MG PO (13:52)
[2023-02-07] MEDS: oxyCODONE 5 MG TAB PO (13:53)
[2023-02-07] MEDS: predniSONE 20 MG TAB 40 MG PO (13:53)
[2023-02-07 14:03] VITALS: BP 148/80; PULSE 63
[2023-02-07 14:15] VITALS: BP 162/65; PULSE 67
[2023-02-07 14:44] VITALS: BP 162/65; PULSE 67; RESP 16; TEMP 36.7; O2SAT 96
--- NOTE | 2023-02-08 11:38 | ED.GENADUL_ITS ---
Discharge Plan Disposition Patient Disposition: Home Discharge Details Clinical Impression: Cervical radiculopathy Primary Care Provider: Naty Kim ED Provider: Jolynn Comer Home Meds and New Rx's Prescriptions: New prednisone 20 mg tablet 40 mg PO ONCE Qty: 23 0RF Rx Instructions: take 2 tabs for 5 days, 1.5 tabs for 5 days, take 1 tab for 5 days gabapentin [Neurontin] 100 mg capsule 100 mg PO BID Qty: 20 0RF Rx Instructions: take 100 mg once daily for 1-2 days, may increase to twice daily in 2-3 days, and to three times daily in 3-4 days Continued Gokul Enzyme 1 cap PO BID Rx Instructions: GOKUL ibuprofen 200 mg tablet 200 mg PO QHS PRN Hold Instructions: Adverse Reaction Patient Comments: not taking diphenhydramine HCl [Benadryl Allergy] 25 mg tablet 25 mg PO TID PRN Patient Comments: Pt taking this up to TID.HE dietary supplement Capsule PO DAILY Patient Comments: Pt taking a daily Vitamin D, unsure of which one. Pt is taking a fish oil for eyes.HE amlodipine 2.5 mg tablet 2.5 mg PO DAILY Qty: 90 3RF hydralazine 10 mg tablet 10 mg PO TID Qty: 270 3RF Rx Instructions: Increase for BP elevations propranolol 10 mg tablet 10 mg PO TID Qty: 270 3RF atorvastatin [Lipitor] 10 mg tablet 10 mg PO HS Qty: 90 3RF nitrofurantoin monohyd/m-cryst [Macrobid] 100 mg capsule 100 mg PO BID Qty: 14 0RF Rx Instructions: must administer with a meal/food for UTI; hydrate with water multivitamin [Multi-Day] 1 EACH tablet 1 ea PO DAILY levocetirizine [Xyzal] 5 mg tablet 5 mg PO BID epinephrine 0.3 mg/0.3 mL auto-injector 0.3 ml subcut Q5-15M PRN (Reason: hypersensitivity reaction; anaphylaxis) Qty: 2 1RF Rx Instructions: do not exceed 3 doses per episode omeprazole 20 mg capsule,delayed release(DR/EC) 20 mg PO DAILY Qty: 90 3RF famotidine 20 mg tablet 20 mg PO DAILY Qty: 90 3RF aspirin 81 MG tablet,delayed release (DR/EC) 81 mg PO DAILY Hold Instructions: Adverse Reaction magnesium oxide 250 mg magnesium tablet 400 mg PO DAILY Probiotic 3 billion cell Capsule PO PRN PRN Discharge Instructions Additional Instructions: Take the prednisone as prescribed Take the Neurontin as needed, you may start with once daily for the next day or 2 followed by twice daily after 2 to 3 days to 3 times daily 3 to 4 days Please follow-up with your doctor Have ordered an outpatient MRI, this may need a prior authorization, please call the number listed on the form Return immediately should you have weakness or with any new or worsening complaints, I suspect this is a herniated disc of your cervical spine, refrain from lifting more than 5 pounds Continue taking Tylenol as needed for discomfort do not exceed 3 g daily Referrals: Naty Kim DO [Primary Care Provider] - 3 days Discharge Data Discharge Date/Time-TO BE ENTERED AT DEPARTURE: 02/07/23 14:43 Medical Decision Making 67-year-old female presents with neck pain with radiation into right arm, suspect cervical radiculopathy Will place on prednisone and Neurontin Will order outpatient MRI for further evaluation Return precautions reviewed and patient expressed understanding Medical Records Medical records reviewed: Yes I reviewed the patient's medical records. Lab Data Lab results reviewed: Yes I reviewed the patient's lab results. HPI General Date/Time Provider Initiated Documentation: 02/07/23 11:48 . HPI Narrative: This 67-year-old female presents with report of neck pain that radiates into her right hand. Denies any headache, chest pain, shortness of breath. States that she is right-hand dominant. Her symptoms been present for the past 2 weeks and she actually was evaluated by her doctor but did not have any additional intervention at time of initial assessment pending repeat exam. Denies any weakness to her hands. Has been taking Tylenol every 4 hours for discomfort per patient. Related Data Home Medications Medication Instructions Recorded Confirmed multivitamin (Multi-Day tablet) 1 ea PO DAILY 01/23/14 01/30/23 aspirin 81 mg tablet,delayed 81 mg PO DAILY 07/15/17 01/30/23 release ibuprofen 200 mg tablet 200 mg PO QHS PRN 11/11/19 01/30/23 lactobacillus combination no.4 3 PO PRN PRN 02/09/22 01/30/23 billion cell capsule (Probiotic) magnesium oxide 400 mg PO DAILY 02/09/22 01/30/23 Gokul Enzyme 1 cap PO BID 04/15/22 01/30/23 levocetirizine 5 mg tablet (Xyzal) 5 mg PO BID 06/17/22 01/30/23 epinephrine 0.3 mg/0.3 mL 0.3 ml subcut Q5-15M PRN 06/18/22 01/30/23 injection, auto-injector hypersensitivity reaction; anaphylaxis #2 ea famotidine 20 mg tablet 20 mg PO DAILY #90 tabs 09/19/22 01/30/23 omeprazole 20 mg capsule,delayed 20 mg PO DAILY #90 caps 09/19/22 01/30/23 release nitrofurantoin 100 mg PO BID #14 caps 10/01/22 01/30/23 monohydrate/macrocrystals 100 mg capsule (Macrobid) amlodipine 2.5 mg tablet 2.5 mg PO DAILY #90 tabs 01/30/23 01/30/23 atorvastatin 10 mg tablet (Lipitor) 10 mg PO HS #90 tabs 01/30/23 01/30/23 dietary supplement cap PO DAILY 01/30/23 01/30/23 diphenhydramine HCl 25 mg tablet 25 mg PO TID PRN 01/30/23 01/30/23 (Benadryl Allergy) hydralazine 10 mg tablet 10 mg PO TID #270 tabs 01/30/23 01/30/23 propranolol 10 mg tablet 10 mg PO TID #270 tabs 01/30/23 01/30/23 gabapentin 100 mg capsule 100 mg PO BID #20 caps 02/07/23 (Neurontin) prednisone 20 mg tablet 40 mg PO ONCE #23 tabs 02/07/23 Previous Rx's Medication Instructions Recorded epinephrine 0.3 mg/0.3 mL 0.3 ml subcut Q5-15M PRN 06/18/22 injection, auto-injector hypersensitivity reaction; anaphylaxis #2 ea famotidine 20 mg tablet 20 mg PO DAILY #90 tabs 09/19/22 omeprazole 20 mg capsule,delayed 20 mg PO DAILY #90 caps 09/19/22 release nitrofurantoin 100 mg PO BID #14 caps 10/01/22 monohydrate/macrocrystals 100 mg capsule (Macrobid) amlodipine 2.5 mg tablet 2.5 mg PO DAILY #90 tabs 01/30/23 atorvastatin 10 mg tablet (Lipitor) 10 mg PO HS #90 tabs 01/30/23 hydralazine 10 mg tablet 10 mg PO TID #270 tabs 01/30/23 propranolol 10 mg tablet 10 mg PO TID #270 tabs 01/30/23 gabapentin 100 mg capsule 100 mg PO BID #20 caps 02/07/23 (Neurontin) prednisone 20 mg tablet 40 mg PO ONCE #23 tabs 02/07/23 Allergies Allergy/AdvReac Type Severity Reaction Status Date / Time codeine Allergy Severe headaches Verified 01/30/23 10:20 hydrochlorothiazide Allergy Severe Dizziness/L Verified 01/30/23 10:20 ighthead clindamycin Allergy Intermediate Diarrhea Verified 01/30/23 10:20 lisinopril Allergy Intermediate angioedema Verified 01/30/23 10:20 Penicillins Allergy Mild hives Verified 01/30/23 10:20 azithromycin Allergy Unknown irregular Verified 01/30/23 10:20 heart beat epinephrine HCl AdvReac Severe HYPERSENSIT Verified 01/30/23 10:20 [From Adrenalin] REILLY General Stated Complaint: Nk/Back Pain WILDER: 4 PFSH All Active Problems (Updated 02/07/23 @ 14:20 by CORAL Abraham) Cervical radiculopathy (Acute) Postauricular pain (Acute) POTS syndrome (Acute) Dry eye (Acute) from Xixol (anti-histamine) Neck ache (Acute) Neck/shoulder, seems assoc with URI (feels like after a flu shot) URI (upper respiratory infection) (Acute) Lipoma of ear (Acute) behind left ear .. Traumatic compression fracture of L3 vertebra (Acute) Gastroesophageal reflux disease (Acute 06/08/18) Dysautonomia orthostatic hypotension syndrome (Acute 12/17/17) Encounter for screening and preventative care (Acute) Reviewed med problems, meds. Chol screen [ ] , spring 2018. Mammo (-). [place] [ ] (declined 2' POTS & Anesth risks)(FITS?). Dexa done (Osteopenia). Reviewed activity, diet. Couns on hydration, diet examples, prevent care for left sided weakness.. Osteoporosis (Chronic) @ left fem neck per 06/2022 DEXA.,, (other values remain @ osteopenia) [ ] Rx/Tx Osteopenia (Chronic ~06/26/09) L hip T score -1.6, repeated 08/10/18 Left hip -1.9 Hypertension (Acute) Medical History (Updated 02/07/23 @ 14:20 by CORAL Abraham) Angioedema Gastrointestinal food sensitivity History of weakness of extremity No h/o CVA, no major decline reported .. but baseline evaluation appreciated. Left sided LE weakness noted on exam (UE seem symm). Hypercholesterolemia (06/11/09) 2015 labs show HyperTRIG, with Chol WNL (rubia meds). Low HDL notable. 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 clinical Dx: Mast Cell Activation Syndrome .. good results with low histamine diet. Ocular migraine (06/08/18) POTS (postural orthostatic tachycardia syndrome) (06/08/18) Pt knows/manages herself well, decreased CCB (LE Edema) and added hydralazine in Jul 2018. Unable to tolerate higher dose ACEi. Swelling of face New, possibly assoc with ACEi (~ angioedema).. Surgical History Appendectomy Arthroplasty of knee Ligation of fallopian tube Tonsillectomy and adenoidectomy Family History Other Personal history of malignant neoplasm uncle-colon ca Heart disease Hyperlipidemia Other Personal history of malignant neoplasm aunt -breast ca Heart disease Alcohol use Mother Dementia Hyperlipidemia Heart disease Essential hypertension Father Essential hypertension Stroke Heart disease Social History Smoking/Tobacco Use Status: Never Smoking risk assessment performed?: Yes Alcohol Intake: current Alcohol Intake frequency: holidays/special occasions only Substance use type: does not use Adopted: No Caregiver/Support person: No Foster care: No Household members: spouse Housing: house Number of Children: 2 Communication Needs: Corrective Lenses Do you need help understanding health information?: Rarely 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 Pets and animals: No (formerly had a dog who last year 2020) Sexually active: No Do you think of yourself as: straight/heterosexual Current gender identity: female What is your relationship status?: How often do you talk on the phone with friends or family?: once per week How often do you get together with friends or relatives?: never How often do you attend gnosticist or muslim services?: decline to answer Do you belong to any clubs or organized social groups?: no Panel score (0-1 are the most socially isolated patients): 1 What type of physical activity do you participate in: none Duration: 30-45 minutes/day Frequency: 5-6 times per week Bella/Denominational: anabaptism Special blela needs: No Seatbelt use: always Helmet use: Yes Helmet use: never Drive intox or ride w/intox charter and tour bus driver: No Working smoke detector in home: Yes Fire extinguisher in home: No Carbon monox detector in home: Yes Do you feel safe at home: Yes Do you feel safe in your relationship?: Yes Exam Const General: cooperative, comfortable and no acute distress Eyes Pupils: PERRL Neck Other: Mild midline tenderness to neck, paraspinal Resp Effort & Inspection: normal respiratory effort Auscultation: clear to auscultation bilaterally Cardio Rate: regular rate Rhythm: regular rhythm Neuro General: patient alert and patient oriented x3 Cranial Nerves: CN's II-XI intact bilaterally and tongue midline Cognition: normal cognition Speech: speech normal Other: Mildly diminished sensation to distal hands on right, DTRs intact bilaterally, strength intact, specifically hand grasp intact bilaterally, no weakness noted to biceps or triceps clinically Course Vital Signs Vital signs: Vital Signs Pulse 73 02/07/23 11:35 Respiratory Rate 15 02/07/23 11:35 Blood Pressure 108/90 02/07/23 11:35 Pulse Oximetry 96 02/07/23 11:35 Temperature 36.7 C 02/07/23 14:44 Pulse 67 02/07/23 14:44 Respiratory Rate 16 02/07/23 14:44 Respiratory Effort Normal, Non-Labored 02/07/23 13:57 Blood Pressure 162/65 H 02/07/23 14:44 Blood Pressure Mean 89 02/07/23 14:15 Blood Pressure Position Sitting 02/07/23 11:35 Pulse Oximetry 96 02/07/23 14:44 Oxygen Delivery Method Room Air 02/07/23 11:35 Oxygen Flow Rate 0 02/07/23 11:35 Pain Level 3 02/07/23 14:44
== END 2023-02-07 14:43 | disposition home or self-care (01) ==
PROVIDERS: Emergency Provider Physician Assistant; PCP Student in an Organized Health Care Education/Training Program
DX: M54.12 Radiculopathy, cervical region (principal)
CPT/HCPCS: 99283; J7512

== ENCOUNTER 2023-02-10 01:30 | Outpatient (CLI) | payer OTHER, SELFPAY ==
--- NOTE | 2023-02-10 | DI.MRI_ITS ---
Exam(s) MR CERVICAL SPINE WO EXAM: MR CERVICAL SPINE WO CLINICAL HISTORY: CERVICAL MYELOPATHY,RT ARM WEAKNESS, NUMBNESS TECHNIQUE: Multiplanar multisequence MRI of the cervical spine was performed without intravenous con trast. COMPARISON: No exams were available for comparison FINDINGS: CERVICOMEDULLARY JUNCTION: Intact with no evidence of cerebellar tonsillar ectopia. Cervical curvatu re is maintained. No obvious abnormality of the odontoid process. CERVICAL SPINAL CORD: There is no abnormal signal in the cervical spinal cord and no evidence of foca l cord atrophy nor focal cord swelling. OSSEOUS:There are no cervical fractures evident. No significant osseous lesions in the cervical vert ebrae. INDIVIDUAL LEVELS: C2-3: No disc herniation or central canal stenosis. Right facet joints unremarkable. Left facet kalyani nts exhibit some degenerative change. No significant foraminal stenosis at this level. C3-4: No disc herniation nor central canal stenosis.Mild-moderate facet joint degenerative changes bi laterally. No significant foraminal stenosis. C4-5: There is moderate disc space narrowing at this level. There is mild central annular bulging. Mildly indents the thecal sac but not the spinal cord. No abnormal signal in the cord at this level. Central canal dimensions are lower normal. There are moderate degenerative changes in both facet j oints at this level.No significant foraminal stenosis on either side. C5-6: This level exhibits chronic advanced disc space narrowing Luschka joint osteophyte on the left side. Mild annular bulging. This is more evident left of center. Central canal dimensions lower no rmal. No significant focal disc herniation evident. There are mild-moderate facet joint degenerativ e changes bilaterally. There is narrowing of the exiting left neural foramen at this level related t o Luschka joint osteophyte. On the right side there is no significant foraminal stenosis. C6-7: This level also exhibits chronic advanced disc space narrowing. No distinct disc herniation. Central canal dimensions are lower normal. Right-sided Luschka joint osteophyte noted. Mild-moderat e degenerative changes in the left facet joint. Minimal degenerative changes in the right facet join t. Milder foraminal stenosis on the left side. On the right side also element of foraminal stenosis as there is disc osteophyte complex on the right side. C7-T1: No disc herniation nor central canal stenosis. No facet arthropathy.No foraminal stenosis. IMPRESSION: 1. Multilevel chronic degenerative disc disease. There is no dominant focal disc herniation and no p rominent central spinal canal stenosis. 2. At C5-6 level there is asymmetric left-sided foraminal stenosis due to Luschka joint osteophytes. 3. At C6-7 level there is asymmetric right-sided foraminal stenosis related to disc-Luschka joint ost eophyte complex. DATA REPOSITORY:
== END 2023-02-10 01:50 ==
LOC: DI 01:31
PROVIDERS: PCP Student in an Organized Health Care Education/Training Program; Visit Provider Physician Assistant
DX: M48.02 Spinal stenosis, cervical region (principal)
CPT/HCPCS: 72141

== ENCOUNTER 2024-01-26 05:20 | Outpatient (CLI) | payer OTHER, SELFPAY ==
[2024-01-26 10:59] LABS: Anion Gap 7.7 mmol/L (3-11); BUN 16 mg/dL (7-18); CO2 30.3 mmol/L (21.0-32.0); CREATININE 0.9 mg/dL (0.55-1.02); Calcium 8.9 mg/dL (8.5-10.1); Calculated LDL 116 mg/dL (<100); Chloride 105 mmol/L (98-107); Cholesterol 197 mg/dL (<200); Glucose 96 mg/dL (74-106); HDL Cholesterol 41 mg/dL (40-60); Potassium 4.3 mmol/L (3.5-5.1); Sodium 143 mmol/L (136-145); TSH (W/Ref FT4) 1.27 uIU/mL (0.36-3.74); Triglyceride 201 mg/dL (<150)
== END 2024-01-26 05:21 | disposition home or self-care (01) ==
LOC: LBO 05:20
PROVIDERS: PCP Student in an Organized Health Care Education/Training Program; Visit Provider Student in an Organized Health Care Education/Training Program
DX: I10 Essential (primary) hypertension (principal); Z13.220 Encounter for screening for lipoid disorders
CPT/HCPCS: 36415; 80048; 80061; 84443

== ENCOUNTER 2024-12-02 00:15 | Outpatient (CLI) | payer OTHER, SELFPAY ==
--- NOTE | 2024-12-02 07:00 | DI.MAMMO_ITS ---
Exam(s) MAMMO SCREENING EXAM: MAMMO SCREENING CLINICAL HISTORY: screening,z12.39 TECHNIQUE: Bilateral full field digital CC and MLO mammographic images were obtained with 3D tomosyn thesis and utilizing computer aided detection (CAD). COMPARISON: Available for comparison. FINDINGS: Masses/Architectural Distortion: There is stable small nodules in both breasts. No new nodules are s een. No areas of architectural distortion are present. Microcalcifications: No suspicious pleomorphic-type are seen. Skin Thickening/Nipple Retraction: None. IMPRESSION: 1. No significant interval change with no specific features of malignancy noted. 2. Unless there is more urgent need, screening mammography is recommended, as per [employer] guidelines. BI-RADS Category 2 - Benign Findings Breast Density - Category B - Scattered areas of fibroglandular density Breast density category C or D implies that the patient has dense breast tissue. Dense breast tissue is very common and is not abnormal but dense breast tissue can make it harder to find cancer on a ma mmogram. Also, dense breast tissue may increase their breast cancer risk. This information about the result of the mammogram report was provided to the patient to raise their awareness. Use this report when you speak with the patient about their risks for breast cancer, which includes their family hist ory. At that time, you may recommend for more screening tests (Ultrasound or MRI) as they might be us eful based on their risk. A negative radiographic report should not delay biopsy if a dominant or clinically suspicious mass is present. Up to ten percent of cancers are not identified on mammography. A negative report may reinforce clinical impression. Adenosis and dense breasts may obscure an underlying neoplasm. False positive reports average 6 to 10%. Patient will receive a letter notifying them of these results.
== END 2024-12-02 00:35 ==
LOC: DI 00:15
PROVIDERS: PCP Student in an Organized Health Care Education/Training Program; Visit Provider Student in an Organized Health Care Education/Training Program
DX: Z12.31 Encounter for screening mammogram for malignant neoplasm of breast (principal); R92.323 Mammographic fibroglandular density, bilateral breasts; D24.1 Benign neoplasm of right breast; D24.2 Benign neoplasm of left breast
CPT/HCPCS: 77063; 77067

== ENCOUNTER 2025-06-02 02:21 | Outpatient (CLI) | payer OTHER, SELFPAY ==
[2025-06-02 10:01] LABS: HCT 43.0 % (36.0-46.0); HGB 14.7 g/dL (11.2-15.7); MCH 30.9 pg (27.0-33.0); MCHC 34.2 % (32.0-36.0); MCV 90 fL (80-95); MPV 10.6 fL (8.0-11.0); Platelet Count 242 10^3/uL (130-400); RBC 4.76 10^6/uL (3.93-5.22); RDW 12.4 % (11.7-14.6); RDW-SD 41.3 fL; WBC 6.28 10^3/uL (4.4-10.8)
[2025-06-02 10:59] LABS: ALT 34 U/L (14-59); AST 20 U/L (15-37); Albumin 3.6 g/dL (3.4-5.0); Alkaline Phosphatase 97 U/L (46-116); Anion Gap 7.1 mmol/L (3-11); BUN 18 mg/dL (7-18); Bilirubin, Total 0.3 mg/dL (0.2-1.0); CO2 28.9 mmol/L (21.0-32.0); Calcium 9.4 mg/dL (8.5-10.1); Calculated LDL 110 mg/dL (<100); Chloride 105 mmol/L (98-107); Cholesterol 206 mg/dL (<200); Estimated GFR 78.72 (mL/min/1.73m2); Glucose 103 mg/dL (74-106); HDL Cholesterol 36 mg/dL (>or=50); Potassium 4.6 mmol/L (3.5-5.1); Sodium 141 mmol/L (136-145); TSH (W/Ref FT4) 0.96 uIU/mL (0.36-3.74); Total Protein 7.2 g/dL (6.4-8.2); Triglyceride 301 mg/dL (<150); Vitamin D 25 Total 33 ng/mL (30-100)
== END 2025-06-02 02:22 | disposition home or self-care (01) ==
PROVIDERS: PCP Nurse Practitioner Family; Visit Provider Student in an Organized Health Care Education/Training Program
DX: I10 Essential (primary) hypertension (principal); M81.0 Age-related osteoporosis without current pathological fracture; Z13.220 Encounter for screening for lipoid disorders; K90.9 Intestinal malabsorption, unspecified; M85.80 Other specified disorders of bone density and structure, unspecified site
CPT/HCPCS: 36415; 80053; 80061; 82306; 85027; 84443